=== PATIENT | female | born 1965 | race Caucasian/White ===

== ENCOUNTER → 2019-06-30 08:08 | Outpatient (CLI) | payer OTHER, SELFPAY ==
[2019-07-04 20:30] LABS: Fecal Immunochemical Test NOT DETECTED (NOT DETECTED)
== END ==
PROVIDERS: Family Provider Family Medicine; PCP Family Medicine; Referring Provider Family Medicine; Visit Provider Family Medicine
DX: Z12.11 Encounter for screening for malignant neoplasm of colon (principal)
CPT/HCPCS: 82274

== ENCOUNTER → 2019-12-22 11:22 | Outpatient (CLI) | payer OTHER, SELFPAY ==
--- NOTE | 2019-12-22 11:39 | DI.MG.S_ITS ---
Patient Name: TOBY WHITLOCK date: 1965 Sex: F Attending Physician: Onur Indications: Date: 12/22/2019 11:34 At the request of: DARCI GUERRA Procedure: MM screening mammo BI BILATERAL DIGITAL SCREENING MAMMOGRAM 3D/2D WITH CAD: 12/22/2019 CLINICAL: Routine screening. Family history of breast cancer. Comparison is made to exams dated: 03/20/2017 mammogram and 04/15/2013 mammogram - [facility]. There are scattered fibroglandular elements in both breasts. Current study was also evaluated with a Computer Aided Detection (CAD) system. No significant masses, calcifications, or other findings are seen in either breast. There has been no significant interval change. IMPRESSION: NEGATIVE There is no mammographic evidence of malignancy. A 1 year screening mammogram is recommended. This exam was interpreted at Station ID: [id number]. NOTE: For mammograms, a report in lay terms will be sent to the patient. Approximately 15% of breast malignancies will not be visualized mammographically. In the management of a palpable breast mass, a negative mammogram must not discourage biopsy of a clinically suspicious lesion. Electronically Signed By: Porfirio ring/long:12/22/2019 15:07:25 letter sent: Normal Exam ACR BI-RADS Category 1: Negative [id number]
== END ==
PROVIDERS: Family Provider Family Medicine; PCP Family Medicine; Referring Provider Family Medicine; Visit Provider Family Medicine
DX: Z12.31 Encounter for screening mammogram for malignant neoplasm of breast (principal); Z80.3 Family history of malignant neoplasm of breast
CPT/HCPCS: 77063; 77067

== ENCOUNTER → 2019-12-29 08:11 | Outpatient (CLI) | payer OTHER, SELFPAY ==
[2019-12-29 08:49] LABS: Add Manual Diff / Slide Review NO; Basophils Absolute Auto 0 /uL (0-100); Basophils Percent Auto 0.6 % (0-2); Eosinophils Absolute Auto 200 /uL (0-450); Hematocrit 42.3 % (36-46); Hemoglobin 14.6 g/dL (12.0-16.0); Lymphocytes Absolute Auto 2400 /uL (1100-4500); Lymphocytes Percent Auto 41.5 % (25-40); Mean Corpuscular HGB Conc 34.5 % (30-36); Mean Corpuscular Hemoglobin 30.2 PG (26-34); Mean Corpuscular Volume 87.6 fL (80-100); Monocytes Absolute Auto 300 /uL (0-900); Monocytes Percent Auto 5.2 % (3-14); Neutrophils Absolute Auto 2800 /uL (1500-7000); Neutrophils Percent Auto 49.7 % (50-75); Platelet Count 278 X10^3/uL (150-400); Red Blood Cell Count 4.83 X10^6/uL (4.0-5.2); Red Cell Distribution Width 12.8 % (11.6-14.8); White Blood Cell Count 5.7 X10^3/uL (4.5-11.0)
[2019-12-29 09:05] LABS: Alanine Aminotransferase 19 IU/L (<35); Albumin 4.4 g/dL (3.5-5.0); Albumin Globulin Ratio 1.8 (1.0-2.8); Alkaline Phosphatase 55 U/L (38-126); Aspartate Aminotransferase 22 IU/L (14-36); BUN Creatinine Ratio 17.9 (6-22); Bilirubin Total 1.1 mg/dL (0.2-1.3); Blood Urea Nitrogen 14 mg/dL (7-17); Calcium 9.3 mg/dL (8.4-10.2); Carbon Dioxide 27 mmol/L (22-32); Chloride 107 mmol/L (98-107); Cholesterol 177 mg/dL (140-199); Estimated Glomerular Filt Rate > 60.0 mL/min (>60); Globulin 2.5 g/dL (1.7-4.1); Glucose 111 mg/dL (70-100); HDL Cholesterol 63 mg/dL (40-60); HEMOLYSIS < 15 (0-50); LDL Cholesterol Calculated 95 mg/dL (<100); Potassium 4.3 mmol/L (3.4-5.1); Sodium 140 mmol/L (137-145); Total Protein 6.9 g/dL (6.3-8.2); Triglycerides 97 mg/dL (35-150)
[2019-12-29 09:21] LABS: Free T3, Triiodothyronine Free 3.42 pg/mL (2.77-5.27); Free T4, Direct Thyroxine 0.93 ng/dL (0.78-2.19)
[2019-12-29 09:35] LABS: Thyroid Stimulating Hormone 3.29 uIU/mL (0.47-4.68)
[2019-12-29 11:59] LABS: Vitamin D 25 Hydroxy (D3) 26.3 ng/mL (30.0-100.0)
== END ==
PROVIDERS: Family Provider Family Medicine; PCP Family Medicine; Referring Provider Family Medicine; Visit Provider Family Medicine
DX: Z00.00 Encounter for general adult medical examination without abnormal findings (principal); E55.9 Vitamin D deficiency, unspecified
CPT/HCPCS: 36415; 80053; 80061; 82306; 84439; 84443; 84481; 85025

== ENCOUNTER → 2020-07-04 13:40 | Outpatient (CLI) | payer OTHER, SELFPAY ==
[2020-07-04] MEDS: COVID-19 VACC, Ad26(JANSSEN)/PF 0.5 ML IM (13:45)
== END ==
PROVIDERS: Family Provider Family Medicine; PCP Family Medicine; Visit Provider Internal Medicine
DX: Z23 Encounter for immunization (principal)
CPT/HCPCS: 0031A; 91303

== ENCOUNTER → 2020-08-08 16:12 | Outpatient (CLI) | payer OTHER, SELFPAY ==
[2020-08-09 13:14] LABS: Fecal Immunochemical Test Negative (Negative)
== END ==
PROVIDERS: Family Provider Family Medicine; PCP Family Medicine; Referring Provider Family Medicine; Visit Provider Family Medicine
DX: Z12.11 Encounter for screening for malignant neoplasm of colon (principal)
CPT/HCPCS: 82274

== ENCOUNTER 2020-09-17 09:52 | Emergency (ER) | payer OTHER, SELFPAY ==
[2020-09-17 09:55] VITALS: BP 170/91; PULSE 106; RESP 22; O2SAT 99; BMI 32.8
[2020-09-17 09:56] VITALS: PULSE 113; O2SAT 96
[2020-09-17 09:58] VITALS: BP 170/91; PULSE 112; O2SAT 97
[2020-09-17 10:00] VITALS: PULSE 105; RESP 28; O2SAT 98
--- NOTE | 2020-09-17 10:01 | ED.GENADULT ---
HPI - General Adult General Chief complaint: Dizziness Stated complaint: dizziness, hypertension, started Thursday, vomiting Time Seen by Provider: 09/17/20 09:53 Source: patient Mode of arrival: Wheelchair Limitations: no limitations History of Present Illness HPI narrative: Patient is a 55-year-old female who 3 days ago woke up to urinate early in the morning and had which she describes as a room spinning sensation. She states that she vomited several times over the next several hours. The symptoms did seem to improve however she continues to have some unsteadiness on her feet. She states that the day after the onset of the symptoms she felt drained and tired but was somewhat better. Yesterday she was able to clean her house. This morning she again was feeling very drained and tired. Was having some lightheadedness. Symptoms became more prominent when she bent over to put on her shoes. 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 She went to the walk-in clinic on the took her blood pressure and was elevated there is well so she was sent to the emergency department for further evaluation. Related Data Home Medications Medication Instructions Recorded Confirmed fluticasone propionate 50 2 spray NASAL DAILY PRN 10/18/19 09/17/20 mcg/actuation nasal spray,suspension Previous Rx's Medication Instructions Recorded meclizine 25 mg PO TID PRN #14 tab 09/17/20 ondansetron 4 mg PO Q6H PRN #14 tab 09/17/20 Allergies Allergy/AdvReac Type Severity Reaction Status Date / Time PENICILLIN Allergy Mild VOMITING Uncoded 08/15/20 14:34 Review of Systems Constitutional Constitutional: Reports fatigue, Denies headache(s) and Reports lethargy Eyes Eyes: Reports blurry vision ENT Ears, Nose, Mouth, and Throat: Reports vertigo, Reports dizziness, Denies headache(s), Reports disequilibrium, Denies sinus pain, Denies sinus pressure and Denies sore throat Cardiovascular Cardiovascular: Denies chest pain, Denies rapid heart rate and Denies dyspnea Respiratory Respiratory: Denies cough and Denies dyspnea Gastrointestinal Gastrointestinal: Denies abdominal pain, Denies change in bowel habits, Reports nausea and Reports vomiting Genitourinary Genitourinary: Reports system reviewed and no additional complaints, except as documented Musculoskeletal Musculoskeletal: Reports system reviewed and no additional complaints, except as documented Integumentary/Breasts Skin/Breast: Reports system reviewed and no additional complaints, except as documented Neurologic Neurologic: Denies confusion, Reports vertigo, Reports dizziness, Denies headache(s) and Reports disequilibrium Psychiatric Psychiatric: Reports system reviewed and no additional complaints, except as documented and Denies confusion Endocrine Endocrine: Reports fatigue Hematologic/Lymphatic On Anticoagulants: No Allergic/Immunologic Allergic/Immunologic: Reports system reviewed and no additional complaints, except as documented Patient History Medical History Encounter for routine gynecological examination Plantar fasciitis Screen for colon cancer Seasonal allergies Sinusitis Somatic dysfunction of lower extremity Varicose veins of both lower extremities Vitamin D deficiency Social History Smoking Status: Never smoker Smoking Status: Never smoker Exam Initial Vital Signs Initial Vital Signs: Vital Signs Pulse Rate 106 H 09/17/20 09:55 Respiratory Rate 22 09/17/20 09:55 Blood Pressure 170/91 H 09/17/20 09:55 Pulse Oximetry 99 09/17/20 09:55 Const General: cooperative and comfortable Limitations: mental status not altered [facility] Head: normal to inspection and normocephalic Ears: hearing grossly normal bilaterally Nose: external nose normal Face and sinus: normal facial exam Mouth: oral mucosae normal Eyes General: appearance normal, both eyes and all related structures Eyelids: eyelids normal Pupils: PERRL Resp Effort & Inspection: normal respiratory effort Auscultation: clear to auscultation bilaterally Cardio Rate: regular rate Rhythm: regular rhythm GI Inspection: normal to inspection Skin Lesions: no lesions Rashes: no rashes Neuro General: patient alert, patient awake and patient oriented x3 Cranial Nerves: CN's II-XI intact bilaterally Cognition: normal cognition Speech: speech normal Other: We were able to reproduce the symptoms by having her bend over and put her head between her legs. Extrem General: normal to inspection and capillary refill normal Psych Appearance: grossly normal and well kempt Course Orders Ordered: ED Orders 09/17/20 10:02 EKG-12 Lead Stat 09/17/20 10:06 Basic Metabolic Panel Stat Complete Blood Count MAN DIFF Stat Discontinued Medications Meclizine HCl (Meclizine Hcl 12.5 Mg Tablet) 25 mg PO NOW ONE Stop: 09/17/20 10:16 Last Admin: 05/24/21 10:24 Dose: 25 mg Documented by: ISHMAEL Vital Signs Vital signs: Vital Signs - 8 hr 09/17/20 09:55 Pulse Rate 106 H Respiratory Rate 22 Blood Pressure 170/91 H Pulse Oximetry 99 Medical Decision Making Lab Data Lab results reviewed: Yes I reviewed the patient's lab results. Result diagrams: 09/17/20 10:06 09/17/20 10:06 Labs: Lab Results 09/17/20 09/17/20 Range/Units 10:06 10:06 WBC 6.4 (4.5-11.0) X10^3/uL RBC 4.83 (4.0-5.2) X10^6/uL Hgb 14.8 (12.0-16.0) g/dL Hct 42.6 (36-46) % MCV 88.3 (80-100) fL MCH 30.6 (26-34) PG MCHC 34.7 (30-36) % RDW 12.9 (11.6-14.8) % Plt Count 307 (150-400) X10^3/uL Total Counted 100 Seg Neutrophils % 59.0 (38-70) % Lymphocytes % (Manual) 33.0 (25-45) % Atypical Lymphs % 4.0 H ( - 0) % Monocytes % (Manual) 3.0 (2-11) % Eosinophils % (Manual) 1.0 L (2-4) % Neutrophils # (Manual) 3776 (6505-2702) /uL RBC Morphology Normal morphology Sodium 140 (137-145) mmol/L Potassium 3.7 (3.4-5.1) mmol/L Chloride 103 (98-107) mmol/L Carbon Dioxide 28 (22-32) mmol/L BUN 12 (7-17) mg/dL Creatinine 0.61 (0.52-1.04) mg/dL Estimated GFR > 60.0 (>60) mL/min BUN/Creatinine Ratio 19.7 (6-22) Glucose 156 H (70-100) mg/dL Calcium 9.8 (8.4-10.2) mg/dL Urine Dip Bedside Urine Glucose Negative Bedside Urine Bilirubin - Negative Bedside Urine Ketone - Negative Urine Specific [place] 1.010 Bedside Urine Occult Blood - Negative Bedside Urine pH 6.5 Bedside Urine Protein - Negative Bedside Urine Leukocytes - Negative Esterase Point of care testing: Urine Dip Bedside Urine Glucose Negative Bedside Urine Bilirubin - Negative Bedside Urine Ketone - Negative Urine Specific [place] 1.010 Bedside Urine Occult Blood - Negative Bedside Urine pH 6.5 Bedside Urine Protein - Negative Bedside Urine Leukocytes - Negative Esterase ECG Data Attestation: I personally reviewed and interpreted this ECG as follows: Prior ECG tracings: not available for review Interpretation: Sinus tachycardia Ventricular rate 107 Normal axis Normal QRS Normal QTC No ST T wave changes MDM Narrative Medical decision making narrative: Her symptoms are reproducible with both movement of her head to the left and right and also bending over. Otherwise her neurologic exam is normal. Was able to ambulate to the bathroom and she does report some improvement of symptoms after meclizine. She is afebrile. No trauma. I do suspect that this is a peripheral vertigo. I feel that we can hold on radiologic studies for now. Patient was given return precautions and follow-up instructions. She expressed understanding agreement. Discharge Plan Departure Patient Disposition: Home Clinical Impression: Vertigo Instructions: DI for Vertigo Activity Restrictions/Additional Instructions: I do recommend that you continue with taking Claritin on a daily basis. A prescription for nausea medication and also meclizine which you can use as needed was sent to [facility]. Contact your primary provider for follow-up. Return to the emergency department for any new or worsening symptoms Prescriptions: New meclizine 25 mg tablet 25 mg PO TID PRN (Reason: dizziness) Qty: 14 RF: 0 ondansetron 4 mg tablet,disintegrating 4 mg PO Q6H PRN (Reason: nausea and vomiting) Qty: 14 RF: 0 No Action fluticasone propionate [Flonase Allergy Relief] 50 mcg/actuation spray,suspension 2 spray NASAL DAILY PRN (Reason: seasonal allergies) RF: 0 Referrals: Maxim Mohr DO [Primary Care Provider] -
[2020-09-17 10:20] LABS: Hematocrit 42.6 % (36-46); Hemoglobin 14.8 g/dL (12.0-16.0); Mean Corpuscular HGB Conc 34.7 % (30-36); Mean Corpuscular Hemoglobin 30.6 PG (26-34); Mean Corpuscular Volume 88.3 fL (80-100); Platelet Count 307 X10^3/uL (150-400); Red Blood Cell Count 4.83 X10^6/uL (4.0-5.2); Red Cell Distribution Width 12.9 % (11.6-14.8); White Blood Cell Count 6.4 X10^3/uL (4.5-11.0)
[2020-09-17] MEDS: MECLIZINE HCL 12.5 MG TABLET 25 MG PO (10:24)
[2020-09-17 10:27] LABS: BUN Creatinine Ratio 19.7 (6-22); Blood Urea Nitrogen 12 mg/dL (7-17); Calcium 9.8 mg/dL (8.4-10.2); Carbon Dioxide 28 mmol/L (22-32); Chloride 103 mmol/L (98-107); Estimated Glomerular Filt Rate > 60.0 mL/min (>60); Glucose 156 mg/dL (70-100); HEMOLYSIS 17 (0-50); Potassium 3.7 mmol/L (3.4-5.1); Sodium 140 mmol/L (137-145)
[2020-09-17 10:30] VITALS: PULSE 97; RESP 11
[2020-09-17 10:32] LABS: Neutrophils Absolute Manual 3776 /uL (3000-5900); RBC Morphology Normal Morphology; Total Cells Counted 100
== END 2020-09-17 11:35 | disposition home or self-care (01) ==
PROVIDERS: Emergency Provider Emergency Medicine; Family Provider Family Medicine; PCP Family Medicine
DX: R42 Dizziness and giddiness (principal); R11.10 Vomiting, unspecified
CPT/HCPCS: 36415; 80048; 81003; 85025; 93005; 99284

== ENCOUNTER 2020-10-02 12:41 | Emergency (ER) | payer OTHER, SELFPAY ==
[2020-10-02 12:46] VITALS: BP 191/96; PULSE 96; O2SAT 98
[2020-10-02 12:48] VITALS: BP 191/96; PULSE 96; RESP 16; TEMP 36.7; O2SAT 97; BMI 29.7
[2020-10-02 13:00] VITALS: PULSE 87; O2SAT 98
--- NOTE | 2020-10-02 13:16 | ED_ITS ---
HPI - General Adult General Chief complaint: Dizziness Stated complaint: vertigo, high BP since 11:40am Time Seen by Provider: 10/02/20 13:08 Source: patient Mode of arrival: Ambulatory Limitations: no limitations History of Present Illness HPI narrative: Patient is a 55-year-old female who was brought in for evaluation of lightheadedness, dizziness and also high blood pressure. I evaluated her here in the emergency department several weeks ago and discharged her with meclizine with the diagnosis of vertigo that I had a strong suspicion was peripheral vertigo. She has followed up with her primary doctor since then. She does have an appointment for physical therapy but has not seen them yet. 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 Was changing positions. Was squatting and standing up and turning while at work when she had a sudden onset of the symptoms that were very similar to her prior presentation. 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 No head ache. She did take a meclizine prior to arrival with minimal improvement. Related Data Home Medications Medication Instructions Recorded Confirmed fluticasone propionate 50 2 spray NASAL DAILY PRN 10/18/19 09/25/20 mcg/actuation nasal spray,suspension Previous Rx's Medication Instructions Recorded meclizine 25 mg PO TID PRN #14 tab 09/17/20 ondansetron 4 mg PO Q6H PRN #14 tab 09/17/20 Allergies Allergy/AdvReac Type Severity Reaction Status Date / Time PENICILLIN Allergy Mild VOMITING Uncoded 08/15/20 14:34 Review of Systems Constitutional Constitutional: Denies fever(s) and Denies headache(s) Eyes Eyes: Reports blurry vision ENT Ears, Nose, Mouth, and Throat: Reports vertigo, Reports dizziness, Denies headache(s) and Denies sore throat Cardiovascular Cardiovascular: Denies chest pain, Denies rapid heart rate and Denies dyspnea Respiratory Respiratory: Denies dyspnea Gastrointestinal Gastrointestinal: Reports nausea Integumentary/Breasts Skin/Breast: Reports system reviewed and no additional complaints, except as documented Neurologic Neurologic: Denies confusion, Reports vertigo, Reports dizziness and Denies headache(s) Psychiatric Psychiatric: Denies confusion Hematologic/Lymphatic On Anticoagulants: No Allergic/Immunologic Allergic/Immunologic: Reports system reviewed and no additional complaints, except as documented Patient History Medical History Encounter for routine gynecological examination Plantar fasciitis Screen for colon cancer Seasonal allergies Sinusitis Somatic dysfunction of lower extremity Varicose veins of both lower extremities Vitamin D deficiency Social History Smoking Status: Never smoker Smoking Status: Never smoker alcohol intake frequency: 0-2 drinks per day Substance Use Type: does not use Exam Initial Vital Signs Initial Vital Signs: Vital Signs Temperature 98.1 F 10/02/20 12:48 Pulse Rate 96 H 10/02/20 12:48 Respiratory Rate 16 10/02/20 12:48 Blood Pressure 191/96 H 10/02/20 12:48 Pulse Oximetry 97 10/02/20 12:48 Const General: cooperative and comfortable Limitations: mental status not altered HENMT Head: normal to inspection and normocephalic Eyes General: appearance normal, both eyes and all related structures Resp Effort & Inspection: normal respiratory effort Auscultation: clear to auscultation bilaterally Cardio Rate: regular rate Rhythm: regular rhythm Skin Lesions: no lesions Rashes: no rashes Neuro General: patient alert, patient awake and patient oriented x3 Cranial Nerves: CN's II-XI intact bilaterally Cognition: normal cognition Speech: speech normal Sensory Exam: no sensory deficits noted Other: Was able to reproduce the symptoms by sitting her up and turning her head to either side Extrem General: normal to inspection Psych Appearance: grossly normal and well kempt Course Orders Ordered: Discontinued Medications Diazepam (Diazepam 2 Mg Tablet) 2 mg PO NOW ONE Stop: 10/02/20 13:27 Last Admin: 10/02/20 13:37 Dose: 2 mg Documented by: SHANNON Vital Signs Vital signs: Vital Signs - 8 hr 10/02/20 12:48 Temperature 98.1 F Pulse Rate 96 H Respiratory Rate 16 Blood Pressure 191/96 H Pulse Oximetry 97 Medical Decision Making ECG Data Attestation: I personally reviewed and interpreted this ECG as follows: Prior ECG tracings: not available for review Interpretation: Sinus rhythm Ventricular rate 92 Normal axis Normal QRS Normal QTC No ST T wave changes MDM Narrative Medical decision making narrative: Patient reports a great improvement her symptoms after the Valium. I again have a very high suspicion that her symptoms are peripheral vertigo. Feel that we can hold on further workup. She has meclizine at home. She has a referral to see physical therapy. Patient was given return precautions and follow-up instructions. She expressed understanding and agreement. Discharge Plan Departure Patient Disposition: Home Clinical Impression: Dizziness Instructions: DI for Vertigo Activity Restrictions/Additional Instructions: I recommend that you continue all of your medications as directed use the meclizine at home as needed. Keep your appointment with physical therapy. Return to the emergency department for any new or worsening symptoms Prescriptions: No Action fluticasone propionate [Flonase Allergy Relief] 50 mcg/actuation spray,suspension 2 spray NASAL DAILY PRN (Reason: seasonal allergies) RF: 0 meclizine 25 mg tablet 25 mg PO TID PRN (Reason: dizziness) Qty: 14 RF: 0 ondansetron 4 mg tablet,disintegrating 4 mg PO Q6H PRN (Reason: nausea and vomiting) Qty: 14 RF: 0 Referrals: Maxim Mohr DO [Primary Care Provider] -
[2020-10-02 13:30] VITALS: PULSE 81; O2SAT 96
[2020-10-02] MEDS: diazePAM 2 MG TABLET PO (13:37)
[2020-10-02 14:59] VITALS: PULSE 83; O2SAT 96
[2020-10-02 15:00] VITALS: BP 131/71; PULSE 82; O2SAT 97
== END 2020-10-02 15:15 | disposition home or self-care (01) ==
PROVIDERS: Emergency Provider Emergency Medicine; Family Provider Family Medicine; PCP Family Medicine
DX: R42 Dizziness and giddiness (principal); I10 Essential (primary) hypertension
CPT/HCPCS: 93005; 99283

== ENCOUNTER 2020-10-05 10:23 | Emergency (ER) | payer OTHER, SELFPAY ==
[2020-10-05 10:30] VITALS: BP 183/101; PULSE 86; RESP 14; TEMP 37.3; O2SAT 100; BMI 29.7
--- NOTE | 2020-10-05 10:33 | ED.DIZZY ---
HPI - Dizziness General Chief Complaint: Dizziness Stated Complaint: vertigo/dizziness /high blood pressure Time Seen by Provider: 10/05/20 10:26 Source: patient Mode of arrival: Ambulatory Limitations: no limitations History of Present Illness HPI Narrative: PATIENT IS A 55-YEAR-OLD FEMALE WHO WAS DIAGNOSED WITH ?LIKE PERIPHERAL VERTIGO. INITIALLY DIAGNOSED IN THE EMERGENCY DEPARTMENT August IS GIVEN MECLIZINE STARTED PHYSICAL THERAPY. Seem to improve and then was seen and evaluated again on 10/02/2020 for the same. Again she was given meclizine she went to physical therapy again she does seem to be improving is definitely worse with movements and position. 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 She felt like she was going to pass out but did not. She has no numbness tingling weakness no chest pain or palpitations. She denies any nausea. She took meclizine around 915 this morning was does seem to help but she certainly is still having symptoms. Initially she had a blood work and EKG she has never had any imaging of her head. MD complaint: dizziness and near syncope Severity: moderate Relieving factors: remaining still Exacerbating factors: movement and position Related Data Home Medications Medication Instructions Recorded Confirmed fluticasone propionate 50 2 spray NASAL DAILY PRN 10/18/19 09/25/20 mcg/actuation nasal spray,suspension Previous Rx's Medication Instructions Recorded meclizine 25 mg PO TID PRN #14 tab 09/17/20 ondansetron 4 mg PO Q6H PRN #14 tab 09/17/20 meclizine 25 mg PO TID PRN #14 tab 10/05/20 Allergies Allergy/AdvReac Type Severity Reaction Status Date / Time No Known Drug Allergies Allergy Verified 10/05/20 10:32 Review of Systems Review of Systems Narrative: GENERAL: Denies chills, fatigue, malaise, fever, sweats, travel HEENT: Denies sinus pain, ear pain, sore throat, difficulty swallowing, neck pain RESPIRATORY: Denies dyspnea, cough, wheezing, hemoptysis, sputum. CARDIOVASCULAR: Denies chest pain, palpitations, orthopnea, edema GASTROINTESTINAL: Denies nausea, vomiting, abdominal pain, diarrhea, constipation, melena. : Denies dysuria, frequency, incontinence, hematuria, urinary retention, flank pain. MUSCULOSKELETAL: Denies weakness, joint pain, or bony pain SKIN: No rash, no erythema, no pruritus NEUROLOGIC: See HPI PSYCHIATRIC: No concerning psychosocial issues. 12 point review of systems is negative except for those stated above and HPI Patient History Medical History Encounter for routine gynecological examination Plantar fasciitis Screen for colon cancer Seasonal allergies Sinusitis Somatic dysfunction of lower extremity Varicose veins of both lower extremities Vitamin D deficiency Social History Smoking Status: Never smoker Smoking Status: Never smoker alcohol intake frequency: 0-2 drinks per day Substance Use Type: does not use Exam Initial Vital Signs Initial Vital Signs: Vital Signs Temperature 99.1 F 10/05/20 10:30 Pulse Rate 86 10/05/20 10:30 Respiratory Rate 14 10/05/20 10:30 Blood Pressure 183/101 H 10/05/20 10:30 Pulse Oximetry 100 10/05/20 10:30 GENERAL: Well-appearing, well-nourished and in no acute distress. HEENT: Head atraumatic,EOMI, pupils reactive, no nystagmus but symptoms are triggered with extraocular muscle movement face symmetric, moist mucous membranes CARDIOVASCULAR: Regular rate and rhythm without murmurs, rubs or gallops. RESPIRATORY: Breath sounds equal bilaterally, no wheezes rales or rhonchi. ABDOMEN: Soft, nontender. Normoactive bowel sounds all 4 quadrants. No guarding or rebound. EXTREMITIES: Normal range of motion, no clubbing or edema. Neurovascularly intact NEUROLOGICAL: Alert and oriented x4.Normal gait and speech. Cranial nerves II through XII grossly intact. Good sbfcbb-pk-jbot, good magt-wh-ifoz, strength equal bilaterally, no dysarthria or aphasia, sensation in tact to soft touch bilaterally, no visual changes, no facial droop SKIN: Warm, dry, no laceration, no petechiae, no rashes or lesions. Scores NIH Stroke Scale Level of Conciousness: Alert, keenly responsive Ask month/age: Answers both questions correctly. Open/close eyes, close hand: Performs both tasks correctly Best gaze horizontal: Normal Visual baker: No visual loss Facial palsy: Normal symetrical movement Left arm drift: No drift for full 10 sec Right arm drift: No drift for full 10 sec Left leg drift: No drift for full 5 sec Right leg drift: No drift for full 5 sec Limb ataxia: Absent Sensory on face/arms/legs: Normal, no sensory loss Best language: No aphasia, normal Dysarthria: Normal Extinction or inattention: No abnormality Total NIH Stroke scale score: 0 Course Orders Ordered: ED Orders 10/05/20 10:47 EKG-12 Lead Stat 10/05/20 10:55 Complete Blood Count AUTO DIFF Stat Comprehensive Metabolic Panel Stat 10/05/20 11:20 CT angio head and neck Stat Discontinued Medications Ketorolac Tromethamine (Ketorolac 30 Mg/Ml Vial) 30 mg IV NOW ONE Stop: 10/05/20 12:44 Last Admin: 10/05/20 13:05 Dose: 30 mg Documented by: DONOVAN Ondansetron HCl (Ondansetron 4 Mg/2 Ml Inj) 4 mg IV NOW ONE Stop: 10/05/20 10:48 Last Admin: 10/05/20 10:59 Dose: 4 mg Documented by: JENNI Vital Signs Vital signs: Vital Signs - 8 hr 10/05/20 11:01 10/05/20 11:02 10/05/20 13:30 Temperature 98.7 F Pulse Rate 89 70 Respiratory Rate 16 Blood Pressure 162/101 H 149/72 H Pulse Oximetry 98 95 95 MDM - Dizziness Lab Data Attestation: I reviewed the patient's lab results. Result diagrams: 10/05/20 10:55 10/05/20 10:55 Labs: Lab Results 10/05/20 10/05/20 Range/Units 10:55 10:55 WBC 6.8 (4.5-11.0) X10^3/uL RBC 4.85 (4.0-5.2) X10^6/uL Hgb 14.8 (12.0-16.0) g/dL Hct 42.7 (36-46) % MCV 87.9 (80-100) fL MCH 30.4 (26-34) PG MCHC 34.6 (30-36) % RDW 13.0 (11.6-14.8) % Plt Count 305 (150-400) X10^3/uL Neut % (Auto) 50.0 (50-75) % Lymph % (Auto) 41.0 H (25-40) % Harrison % (Auto) 5.6 (3-14) % Eos % (Auto) 2.6 (2-4) % Baso % (Auto) 0.8 (0-2) % Neut # (Auto) 3400 (6371-6520) /uL Lymph # (Auto) 2800 (2653-9849) /uL Harrison # (Auto) 400 (0-900) /uL Eos # (Auto) 200 (0-450) /uL Baso # (Auto) 100 (0-100) /uL Sodium 139 (137-145) mmol/L Potassium 4.1 (3.4-5.1) mmol/L Chloride 105 (98-107) mmol/L Carbon Dioxide 28 (22-32) mmol/L BUN 12 (7-17) mg/dL Creatinine 0.65 (0.52-1.04) mg/dL Estimated GFR > 60.0 (>60) mL/min BUN/Creatinine Ratio 18.5 (6-22) Glucose 110 H (70-100) mg/dL Calcium 9.7 (8.4-10.2) mg/dL Total Bilirubin 1.2 (0.2-1.3) mg/dL AST 34 (14-36) IU/L ALT 41 H (<35) IU/L Alkaline Phosphatase 60 (38-126) U/L Total Protein 7.6 (6.3-8.2) g/dL Albumin 4.5 (3.5-5.0) g/dL Globulin 3.1 (1.7-4.1) g/dL Albumin/Globulin Ratio 1.5 (1.0-2.8) Imaging Data CTA - brain/neck: Radiologist's Impression: PROCEDURE: CT ANGIO HEAD AND NECK INDICATIONS: Persistent dizziness TECHNIQUE: Pre-contrast 4.5 mm thick sections acquired from the foramen magnum to the vertex. After the administration of intravenous contrast, 1 mm thick sections acquired from the aortic arch through the [place] of Matt. Post-contrast 4.5 mm thick sections then re-acquired from the foramen magnum to the vertex. 3-dimensional dnfajfa-klzwyzqpu-vrlrdhxbfp (MIP) and/or volume rendering reformats were acquired of the central intracranial vasculature and neck separately. COMPARISON: None. FINDINGS: Image quality: Excellent. BRAIN: CSF spaces: Ventricles are normal in size and shape. Basal cisterns are patent. No extra-axial fluid collections. Cavum septum pellucidum. Brain: No midline shift. No intracranial bleeds or masses. Khoury-white matter interface appears intact. Skull and face: Calvarium and facial bones appear intact, without suspicious lesions. Orbits appear normal. Sinuses: Sinuses and mastoids are clear. HEAD CT ANGIOGRAPHY: Anterior circulation: Intracranial internal carotid arteries are normal in size and flow. The flow within the paired anterior cerebral arteries is normal and symmetric. The flow within the middle cerebral arteries is normal and symmetric. The anterior communicating artery is seen. No aneurysms are seen. Posterior circulation: Visualized portions of the vertebral arteries demonstrate normal caliber, and join to form a normal appearing basilar artery. There is origin of the right posterior cerebral artery. Flow within the posterior cerebral arteries is normal and symmetric. No aneurysms are seen. NECK CT ANGIOGRAPHY: Carotid system: The great vessels demonstrate a conventional anatomy as they arise from the aortic arch. The origins of the common carotid arteries appear patent. The common carotid arteries demonstrate normal caliber and courses. The bifurcation regions are both widely patent. The internal carotid arteries demonstrate normal calibers and courses. Posterior circulation: The origins of the vertebral arteries both appear widely patent. The more superior extracranial portions of both vertebral arteries also demonstrate normal courses and calibers. They join to form a normal appearing basilar artery. Soft tissues: Visualized neck soft tissues demonstrate no suspicious abnormalities. Bones: No suspicious bony lesions. Visualized cervical spine appears normally aligned. Moderate to severe degenerative and facet disease at C4-C5, C5-C6 and C6-C7. IMPRESSION: 1. No acute intracranial abnormalities. 2. No hemodynamic significant stenosis in anterior or posterior circulations. 3. No hemodynamic significant stenosis in cervical carotid arteries or vertebral arteries bilaterally. 4. Vzizrvxi-zs-dkfgiq degenerative disc and facet disease in cervical spine. Any quantitative measurements of stenosis were performed using NASCET criteria. ECG Data Attestation: I personally reviewed and interpreted this ECG as follows: Prior ECG tracings: available for review Interpretation: Normal sinus rhythm rate 80 p.r. interval 116 QRS [address] changes no T-wave inversions similar to previous EKG she MDM Narrative Medical decision making narrative: Patient previously diagnosed with peripheral benign paroxysmal positional vertigo. She has not yet had any imaging of her head as seen a few days ago. At this time blood work and CT angiogram be not show any abnormality. Symptoms are most consistent with benign paroxysmal positional vertigo. She already is set up with physical therapy. She took her meclizine prior to arrival which now seems to be working but she does have a headache. Headache is better after Toradol. Discharge Plan Departure Patient Disposition: Home Clinical Impression: Benign paroxysmal positional vertigo Qualifiers: Laterality: unspecified laterality Qualified Code(s): H81.10 - Benign paroxysmal vertigo, unspecified ear Instructions: DI for Vertigo Activity Restrictions/Additional Instructions: *You have been diagnosed with benign paroxysmal positional vertigo *What to do: Your symptoms are likely related to vertigo, this unfortunately real spontaneously resolve on its own. He may need a head ear nose and throat specialty evaluation if symptoms continue If this should happen at work I recommend taking her meclizine and giving it a couple of hours to work. If your symptoms are significantly worse or changing then you need to return to the emergency department *Continue to take medications as directed Meclizine 25-50 mg every 8 hours if needed for dizziness--> SENT TO [facility] *Follow up with your primary care provider in 2-3 days *Return to ER if you should have increasing dizziness, speech difficulty, facial droop, weakness or any new, worsening or concerning symptoms Prescriptions: New meclizine 25 mg tablet 25 mg PO TID PRN (Reason: dizziness) Qty: 14 RF: 0 No Action fluticasone propionate [Flonase Allergy Relief] 50 mcg/actuation spray,suspension 2 spray NASAL DAILY PRN (Reason: seasonal allergies) RF: 0 meclizine 25 mg tablet 25 mg PO TID PRN (Reason: dizziness) Qty: 14 RF: 0 ondansetron 4 mg tablet,disintegrating 4 mg PO Q6H PRN (Reason: nausea and vomiting) Qty: 14 RF: 0 Referrals: Maxim Mohr DO [Primary Care Provider] -
[2020-10-05] MEDS: ONDANSETRON 4 MG/2 ML INJ IV (10:59)
[2020-10-05 11:01] VITALS: O2SAT 98
[2020-10-05 11:02] VITALS: BP 162/101; PULSE 89; O2SAT 95
[2020-10-05 11:07] LABS: Add Manual Diff / Slide Review NO; Basophils Absolute Auto 100 /uL (0-100); Basophils Percent Auto 0.8 % (0-2); Eosinophils Absolute Auto 200 /uL (0-450); Eosinophils Percent Auto 2.6 % (2-4); Hematocrit 42.7 % (36-46); Hemoglobin 14.8 g/dL (12.0-16.0); Lymphocytes Absolute Auto 2800 /uL (1100-4500); Mean Corpuscular HGB Conc 34.6 % (30-36); Mean Corpuscular Hemoglobin 30.4 PG (26-34); Mean Corpuscular Volume 87.9 fL (80-100); Monocytes Absolute Auto 400 /uL (0-900); Monocytes Percent Auto 5.6 % (3-14); Neutrophils Absolute Auto 3400 /uL (1500-7000); Platelet Count 305 X10^3/uL (150-400); Red Blood Cell Count 4.85 X10^6/uL (4.0-5.2); White Blood Cell Count 6.8 X10^3/uL (4.5-11.0)
[2020-10-05 11:16] LABS: Alanine Aminotransferase 41 IU/L (<35); Albumin 4.5 g/dL (3.5-5.0); Albumin Globulin Ratio 1.5 (1.0-2.8); Alkaline Phosphatase 60 U/L (38-126); Aspartate Aminotransferase 34 IU/L (14-36); BUN Creatinine Ratio 18.5 (6-22); Bilirubin Total 1.2 mg/dL (0.2-1.3); Blood Urea Nitrogen 12 mg/dL (7-17); Calcium 9.7 mg/dL (8.4-10.2); Carbon Dioxide 28 mmol/L (22-32); Chloride 105 mmol/L (98-107); Estimated Glomerular Filt Rate > 60.0 mL/min (>60); Globulin 3.1 g/dL (1.7-4.1); Glucose 110 mg/dL (70-100); HEMOLYSIS < 15 (0-50); Potassium 4.1 mmol/L (3.4-5.1); Sodium 139 mmol/L (137-145); Total Protein 7.6 g/dL (6.3-8.2)
--- NOTE | 2020-10-05 11:20 | DI.CT.S_ITS ---
PROCEDURE: CT ANGIO HEAD AND NECK INDICATIONS: Persistent dizziness TECHNIQUE: Pre-contrast 4.5 mm thick sections acquired from the foramen magnum to the vertex. After the administration of intravenous contrast, 1 mm thick sections acquired from the aortic arch through the [place] of Matt. Post-contrast 4.5 mm thick sections then re-acquired from the foramen magnum to the vertex. 3-dimensional nxdobtf-nymqxjtmh-tozlsgurhk (MIP) and/or volume rendering reformats were acquired of the central intracranial vasculature and neck separately. COMPARISON: None. FINDINGS: Image quality: Excellent. BRAIN: CSF spaces: Ventricles are normal in size and shape. Basal cisterns are patent. No extra-axial fluid collections. Cavum septum pellucidum. Brain: No midline shift. No intracranial bleeds or masses. Khoury-white matter interface appears intact. Skull and face: Calvarium and facial bones appear intact, without suspicious lesions. Orbits appear normal. Sinuses: Sinuses and mastoids are clear. HEAD CT ANGIOGRAPHY: Anterior circulation: Intracranial internal carotid arteries are normal in size and flow. The flow within the paired anterior cerebral arteries is normal and symmetric. The flow within the middle cerebral arteries is normal and symmetric. The anterior communicating artery is seen. No aneurysms are seen. Posterior circulation: Visualized portions of the vertebral arteries demonstrate normal caliber, and join to form a normal appearing basilar artery. There is origin of the right posterior cerebral artery. Flow within the posterior cerebral arteries is normal and symmetric. No aneurysms are seen. NECK CT ANGIOGRAPHY: Carotid system: The great vessels demonstrate a conventional anatomy as they arise from the aortic arch. The origins of the common carotid arteries appear patent. The common carotid arteries demonstrate normal caliber and courses. The bifurcation regions are both widely patent. The internal carotid arteries demonstrate normal calibers and courses. Posterior circulation: The origins of the vertebral arteries both appear widely patent. The more superior extracranial portions of both vertebral arteries also demonstrate normal courses and calibers. They join to form a normal appearing basilar artery. Soft tissues: Visualized neck soft tissues demonstrate no suspicious abnormalities. Bones: No suspicious bony lesions. Visualized cervical spine appears normally aligned. Moderate to severe degenerative and facet disease at C4-C5, C5-C6 and C6-C7. IMPRESSION: 1. No acute intracranial abnormalities. 2. No hemodynamic significant stenosis in anterior or posterior circulations. 3. No hemodynamic significant stenosis in cervical carotid arteries or vertebral arteries bilaterally. 4. Qcywtklu-ht-tjlzee degenerative disc and facet disease in cervical spine. Any quantitative measurements of stenosis were performed using NASCET criteria. Dictated by: Chanelle Watt M.D. on 10/05/2020 at 11:51 Approved by: Chanelle Watt M.D. on 10/05/2020 at 12:04
[2020-10-05] MEDS: KETOROLAC 30 MG/ML VIAL IV (13:05)
[2020-10-05 13:30] VITALS: BP 149/72; PULSE 70; RESP 16; TEMP 37.1; O2SAT 95
== END 2020-10-05 13:31 | disposition home or self-care (01) ==
PROVIDERS: Emergency Provider Emergency Medicine; Family Provider Family Medicine; PCP Family Medicine
DX: H81.10 Benign paroxysmal vertigo, unspecified ear (principal)
CPT/HCPCS: 36415; 70496; 70498; 80053; 85025; 93005; 96374; 96375; 99284; J1885; J2405; Q9967

== ENCOUNTER 2020-11-06 13:45 | Outpatient (RCR) | payer OTHER, SELFPAY ==
--- NOTE | 2020-10-03 17:28 | PT.OIE ---
Current Diagnoses Vestibular neuronitis, left ear (10/03/20) Dizziness and giddiness (10/03/20) Past Medical History (Last Reviewed 10/02/20 @ 15:02 by Mansoor Khalil DO) Encounter for routine gynecological examination Plantar fasciitis Screen for colon cancer Seasonal allergies Sinusitis Somatic dysfunction of lower extremity Varicose veins of both lower extremities Vitamin D deficiency Visit Care Team Role Provider Type Maxim Mhor DO Family Provider Physician Primary Care Provider Specialty: Family Practice Address: [address] [place] [address], [id number] Email: JESSE Vann Attending Provider Advanced Work Study Student Referring Provider Specialty: Medical Address: [address] [place] [address], [id number] Email: [email or web address] Therapy Initial Evaluation PT-OP-A Visit Information Start: 10/03/20 16:59 Freq: Status: Active Protocol: Document 10/03/20 14:30 DCW (Rec: 10/03/20 17:26 DCW [id number]) Out-Patient Physical Therapy Visit Information Visit Information Visit Type Initial Evaluation Visit Start Time 14:30 Visit Stop Time 15:15 Total Visit Minutes 45 Visit Number 1 Number of CORE FEEDER Visits 0 Evaluation Information Evaluation Date 10/03/20 PT-OP-B Current Condition Start: 10/03/20 16:59 Freq: Status: Active Protocol: Document 10/03/20 14:30 DCW (Rec: 10/03/20 17:26 DCW [id number]) Current Condition History of Current Condition Onset Date 09/14/20 Current Complaints General imbalance following an episode of continous vertigo History of Current Condition Pt is a 55 year old female complaining of a three week history of vertigo and imbalance. Pt reports she woke up on , 09/14/20, with the entire room spinning, which continued for ~2 hours, no matter what she tried. Pt reports symptoms included nausea and vomiting. Pt did end up going to urgent care, who then sent her to the ED, on 09/17/20, where she was seen , diagnosed with peripheral vertigo, and discharged with Meclizine. She notes she improved by Thursday, and spent most of her weekend not doing much moving. Upon returning to work the following Thursday, pt noted worsened symptoms, especially when up walking around or moving her head, which were now no longer spinning, and more of a feeling of imbalance, like I was tipsy or drunk. Pt denies recent hearing changes, but did note a fullness, or pressure, in her left ear. Pt denies diplopia, dysarthria, discoordination, or decreased mentation/consciousness. Pt reports symptoms are waxing/ waning in nature, seemingly cycling between better or worse about every four days. Pt denies hx of HTN, hyperlipidemia, diabetes, arrhythmia, head trauma, seizure, migraines, back/neck problems, CVA, anxiety/panic disorders, depression, or excessive smoking or drinking. PT-OP-C Subjective Start: 10/03/20 16:59 Freq: Status: Active Protocol: Document 10/03/20 14:30 DCW (Rec: 10/03/20 17:26 [facility] [id number]) OP-PT Subjective Patient Comments Patient Comments When it first started, the room was spinning. Now it feels like I'm on a boat. Patient Questionnaires Dizziness Handicap Inventory DHI Score 52% DHI Functional Impairment 40 to 59% Impaired (Score 40- 59) PT-OP-O Vestibular Start: 10/03/20 16:59 Freq: Status: Active Protocol: Document 10/03/20 14:30 DCW (Rec: 10/03/20 17:26 [facility] [id number]) Vestibular Assessment Screening Tests Vestibular Artery Screen Negative Auditory Tests [place] Test Within normal limits Rinne Test Negative Air Conduction Results Equal Visual Testing Smooth Pursuits Horizontal WNL Smooth Pursuits Vertical WNL Saccades Horizontal WNL Saccades Vertical WNL Gaze Evoked Nystagmus With Fixation Negative Gaze Evoked Nystagmus Without Fixation Negative Heave Test Positive Left Thrust Head Positive Left Head Shake Positive Positional Testing [place]-Hallpike Negative Left,Negative Right Rolling Test Negative Left,Negative Right Supine to Sit Negative Comments Vestibular Comments Positive lateral nystagmus following head shake toward right PT-OP-Q Treatments Start: 10/03/20 16:59 Freq: Status: Active Protocol: Document 10/03/20 14:30 DCW (Rec: 10/03/20 17:26 DCW [id number]) Neuro Re-Education Treatment Vestibular Rehabilitation X2 Viewing Details Head and target moving in opposite directions Comments Pt too symptomatic at this time, reintroduce later X1 Viewing Details Static target, moving head Distance From Target Arm length Speed as tolerated Position seated VOR Retraining Details Moving target and head together Distance From Target Arm length Speed as tolerated Position seated PT-OP-T Assessment and Plan Start: 10/03/20 16:59 Freq: Status: Active Protocol: Document 10/03/20 14:30 DCW (Rec: 10/03/20 17:26 DC [id number]) Physical Therapy Assessment Rehab Potential Rehabilitation Potential Good Evaluation Complexity Number of Personal Factors/Comorbidities 1-2 Number of Body Systems Impaired 1-2 Clinical Presentation at Evaluation Unstable Impairments Impairments Activity Tolerance,Balance, Functional Activities, Functional Mobility,Vestibular Goals Two Impairment Pt scores a 52% disability on the Dizziness Handicap Inventory Senior Living Goal (LTG) Pt to score <30% disability on the DHI LTG Duration 12/03/20 One Impairment Pt does not have an appropriate Home Exercise Program at this time Short Term Goal (STG) Pt to be independent and compliant with an appropriate HEP STG Duration 11/02/20 Assessment Summary Assessment Pt presents with signs and symptoms consistent with left- sided unilateral vestibular hypofunction, likely Vestibular Neuritis. Pt's subjective complaints are strongly suggestive of a sudden unilateral vestibular loss, with 1-2 hours of rotational vertigo, followed by a continuing general loss of balance/equilibrium. Positive Thrust/Heave testing to the left, as well as a lateral nystagmus to the right following a head-shake test, all suggest left-sided dysfunction. Pt does not note any recent notable hearing loss, making VN more likely that Labrynthitis. Pt admits she has largely been moving en bloc to avoid unnecessary head movements. Pt should benefit from skilled vestibular therapy focusing on habituation and/or adaptation exercises, VOR retraining, and balance training to help patient return to her usual level of function. Physical Therapy Plan Frequency and Duration Frequency of Treatment 2x/Week Duration of Treatment Two months Plan of Care Start Date 10/03/20 Plan of Care End Date 12/03/20 Therapeutic Interventions Therapeutic Interventions Balance Training,Canalithic Repositioning,Home Exercise Program,Manual Therapy, Neuromuscular Re-education, Patient/Caregiver Education, Self-Care/Home Management, Therapeutic Activities, Therapeutic Exercises, Vestibular Rehabilitation Next Visit Focus/Plan Next Note Type Treatment Note Next Visit Plan VOR, Vestibular rehabilitation , Habituation/Adaptation exercises
--- NOTE | 2020-10-03 17:29 | PT.OPPOC ---
Physical, Occupational & Speech Therapy At [facility] Current Diagnoses Vestibular neuronitis, left ear (10/03/20) Dizziness and giddiness (10/03/20) Visit Care Team Role Provider Type Maxim Mohr DO Family Provider Physician Primary Care Provider Specialty: Family Practice Address: [address] [place] [address], [id number] Email: JESSE Vann Attending Provider Advanced Fisher Line Referring Provider Specialty: Medical Address: [address] [place] [address], [id number] Email: [email or web address] Plan Of Care PT-OP-T Assessment and Plan Start: 10/03/20 16:59 Freq: Status: Active Protocol: Document 10/03/20 14:30 DCW (Rec: 10/03/20 17:26 DCW [id number]) Physical Therapy Assessment Rehab Potential Rehabilitation Potential Good Evaluation Complexity Number of Personal Factors/Comorbidities 1-2 Number of Body Systems Impaired 1-2 Clinical Presentation at Evaluation Unstable Impairments Impairments Activity Tolerance,Balance, Functional Activities, Functional Mobility,Vestibular Goals Two Impairment Pt scores a 52% disability on the Dizziness Handicap Inventory Patient Care Technician Goal (LTG) Pt to score <30% disability on the DHI LTG Duration 12/03/20 One Impairment Pt does not have an appropriate Home Exercise Program at this time Short Term Goal (STG) Pt to be independent and compliant with an appropriate HEP STG Duration 11/02/20 Assessment Summary Assessment Pt presents with signs and symptoms consistent with left- sided unilateral vestibular hypofunction, likely Vestibular Neuritis. Pt's subjective complaints are strongly suggestive of a sudden unilateral vestibular loss, with 1-2 hours of rotational vertigo, followed by a continuing general loss of balance/equilibrium. Positive Thrust/Heave testing to the left, as well as a lateral nystagmus to the right following a head-shake test, all suggest left-sided dysfunction. Pt does not note any recent notable hearing loss, making VN more likely that Labrynthitis. Pt admits she has largely been moving en bloc to avoid unnecessary head movements. Pt should benefit from skilled vestibular therapy focusing on habituation and/or adaptation exercises, VOR retraining, and balance training to help patient return to her usual level of function. Physical Therapy Plan Frequency and Duration Frequency of Treatment 2x/Week Duration of Treatment Two months Plan of Care Start Date 10/03/20 Plan of Care End Date 12/03/20 Therapeutic Interventions Therapeutic Interventions Balance Training,Canalithic Repositioning,Home Exercise Program,Manual Therapy, Neuromuscular Re-education, Patient/Caregiver Education, Self-Care/Home Management, Therapeutic Activities, Therapeutic Exercises, Vestibular Rehabilitation Next Visit Focus/Plan Next Note Type Treatment Note Next Visit Plan VOR, Vestibular rehabilitation , Habituation/Adaptation exercises Plan of Care Dates Plan of Care Start Date 10/03/20 Plan of Care End Date 12/03/20 Electronically Signed by: Isac Baxter, PT 10/03/20 [id number] Please Sign and Return: I have reviewed this Plan of Care and certify that the skilled therapy services above are required to meet the patient?s needs. Physician Signature Date Printed Name and Credentials Clinical Instructor Signature Printed Name and Credentials
--- NOTE | 2020-10-09 15:28 | PT.OTN ---
Current Diagnoses Vestibular neuronitis, left ear (10/09/20) Dizziness and giddiness (10/09/20) Physical Therapy Treatment Note PT-OP-A Visit Information Start: 10/03/20 16:59 Freq: Status: Active Protocol: Document 10/09/20 09:00 AMB (Rec: 10/09/20 09:40 AMB [id number]) Out-Patient Physical Therapy Visit Information Visit Information Visit Type Treatment Note Visit Start Time 09:00 Visit Stop Time 09:45 Total Visit Minutes 45 Visit Number 2 PT-OP-B Current Condition Start: 10/03/20 16:59 Freq: Status: Active Protocol: Document 10/03/20 14:30 DCW (Rec: 10/03/20 17:26 DCW [id number]) Current Condition History of Current Condition Onset Date 09/14/20 Current Complaints General imbalance following an episode of continous vertigo History of Current Condition Pt is a 55 year old female complaining of a three week history of vertigo and imbalance. Pt reports she woke up on , 09/14/20, with the entire room spinning, which continued for ~2 hours, no matter what she tried. Pt reports symptoms included nausea and vomiting. Pt did end up going to urgent care, who then sent her to the ED, on 09/17/20, where she was seen , diagnosed with peripheral vertigo, and discharged with Meclizine. She notes she improved by Thursday, and spent most of her weekend not doing much moving. Upon returning to work the following Thursday, pt noted worsened symptoms, especially when up walking around or moving her head, which were now no longer spinning, and more of a feeling of imbalance, like I was tipsy or drunk. Pt denies recent hearing changes, but did note a fullness, or pressure, in her left ear. Pt denies diplopia, dysarthria, discoordination, or decreased mentation/consciousness. Pt reports symptoms are waxing/ waning in nature, seemingly cycling between better or worse about every four days. Pt denies hx of HTN, hyperlipidemia, diabetes, arrhythmia, head trauma, seizure, migraines, back/neck problems, CVA, anxiety/panic disorders, depression, or excessive smoking or drinking. PT-OP-C Subjective Start: 10/03/20 16:59 Freq: Status: Active Protocol: Document 10/09/20 09:00 AMB (Rec: 10/09/20 09:40 AMB [id number]) OP-PT Subjective Patient Comments Patient Comments Pt went to the ER on the 11. A lot of movement going on seemed to trigger it. PT-OP-O Vestibular Start: 10/03/20 16:59 Freq: Status: Active Protocol: Document 10/03/20 14:30 DCW (Rec: 10/03/20 17:26 DCW [id number]) Vestibular Assessment Screening Tests Vestibular Artery Screen Negative Auditory Tests Kimble Test Within normal limits Rinne Test Negative Air Conduction Results Equal Visual Testing Smooth Pursuits Horizontal WNL Smooth Pursuits Vertical WNL Saccades Horizontal WNL Saccades Vertical WNL Gaze Evoked Nystagmus With Fixation Negative Gaze Evoked Nystagmus Without Fixation Negative Heave Test Positive Left Thrust Head Positive Left Head Shake Positive Positional Testing [place]-Hallpike Negative Left,Negative Right Rolling Test Negative Left,Negative Right Supine to Sit Negative Comments Vestibular Comments Positive lateral nystagmus following head shake toward right PT-OP-Q Treatments Start: 10/03/20 16:59 Freq: Status: Active Protocol: Document 10/09/20 09:00 AMB (Rec: 10/09/20 09:40 AMB [id number]) Neuro Re-Education Treatment Vestibular Rehabilitation X1 Viewing Details Static target, moving head Distance From Target Arm length Speed as tolerated Position seated, then standing Reps/Duration 30x5 Comments 3/10 dizziness Other Activities 3 Details Education re grounding, symptom managament 2 Details foam balance with horizontal head turns Reps/Duration 5 min 1 Details walking in hallway Reps/Duration 5 min Comments horizontal and then vertical head turns PT-OP-T Assessment and Plan Start: 10/03/20 16:59 Freq: Status: Active Protocol: Document 10/09/20 09:00 AMB (Rec: 10/09/20 09:40 AMB [id number]) Physical Therapy Assessment Assessment Summary Assessment pt with 0/10 dizziness at beginning of session, 1/10 at end. Worst 4/10 after VOR exercises. Pt anxious, so spent a lot of time talking about grounding and instructing in nature of vestibular disorders. Physical Therapy Plan Next Visit Focus/Plan Next Note Type Treatment Note Next Visit Plan VOR, Vestibular rehabilitation , Habituation/Adaptation exercises
--- NOTE | 2020-10-17 15:19 | PT.OTN ---
Current Diagnoses Vestibular neuronitis, left ear (10/17/20) Dizziness and giddiness (10/17/20) Physical Therapy Treatment Note PT-OP-A Visit Information Start: 10/03/20 16:59 Freq: Status: Active Protocol: Document 10/17/20 14:35 MB (Rec: 10/17/20 15:18 MB [id number]) Out-Patient Physical Therapy Visit Information Visit Information Visit Type Treatment Note Visit Start Time 14:35 Visit Stop Time 15:15 Total Visit Minutes 40 Visit Number 3 PT-OP-B Current Condition Start: 10/03/20 16:59 Freq: Status: Active Protocol: Document 10/03/20 14:30 DCW (Rec: 10/03/20 17:26 DCW [id number]) Current Condition History of Current Condition Onset Date 09/14/20 Current Complaints General imbalance following an episode of continous vertigo History of Current Condition Pt is a 55 year old female complaining of a three week history of vertigo and imbalance. Pt reports she woke up on , 09/14/20, with the entire room spinning, which continued for ~2 hours, no matter what she tried. Pt reports symptoms included nausea and vomiting. Pt did end up going to urgent care, who then sent her to the ED, on 09/17/20, where she was seen , diagnosed with peripheral vertigo, and discharged with Meclizine. She notes she improved by Thursday, and spent most of her weekend not doing much moving. Upon returning to work the following Thursday, pt noted worsened symptoms, especially when up walking around or moving her head, which were now no longer spinning, and more of a feeling of imbalance, like I was tipsy or drunk. Pt denies recent hearing changes, but did note a fullness, or pressure, in her left ear. Pt denies diplopia, dysarthria, discoordination, or decreased mentation/consciousness. Pt reports symptoms are waxing/ waning in nature, seemingly cycling between better or worse about every four days. Pt denies hx of HTN, hyperlipidemia, diabetes, arrhythmia, head trauma, seizure, migraines, back/neck problems, CVA, anxiety/panic disorders, depression, or excessive smoking or drinking. PT-OP-C Subjective Start: 10/03/20 16:59 Freq: Status: Active Protocol: Document 10/17/20 14:35 MB (Rec: 10/17/20 15:18 MB [id number]) OP-PT Subjective Patient Comments Patient Comments Pt states that she is doing better since her last ED appointment. The school year is over. She has felt more hyper than usual. She is working on breathing and slowing down. PT-OP-O Vestibular Start: 10/03/20 16:59 Freq: Status: Active Protocol: Document 10/03/20 14:30 DCW (Rec: 10/03/20 17:26 DCW [id number]) Vestibular Assessment Screening Tests Vestibular Artery Screen Negative Auditory Tests Kimble Test Within normal limits Rinne Test Negative Air Conduction Results Equal Visual Testing Smooth Pursuits Horizontal WNL Smooth Pursuits Vertical WNL Saccades Horizontal WNL Saccades Vertical WNL Gaze Evoked Nystagmus With Fixation Negative Gaze Evoked Nystagmus Without Fixation Negative Heave Test Positive Left Thrust Head Positive Left Head Shake Positive Positional Testing [place]-Hallpike Negative Left,Negative Right Rolling Test Negative Left,Negative Right Supine to Sit Negative Comments Vestibular Comments Positive lateral nystagmus following head shake toward right PT-OP-Q Treatments Start: 10/03/20 16:59 Freq: Status: Active Protocol: Document 10/17/20 14:35 MB (Rec: 10/17/20 15:18 MB [id number]) Therapeutic Exercises Sitting Exercises Buteyko breathing Sitting Exercise Name Ed theory in Buteyko breathing , initiated ex Comments See comments in assessment PT-OP-T Assessment and Plan Start: 10/03/20 16:59 Freq: Status: Active Protocol: Document 10/17/20 14:35 MB (Rec: 10/17/20 15:18 MB [id number]) Physical Therapy Assessment Rehab Potential Rehabilitation Potential Good Evaluation Complexity Number of Personal Factors/Comorbidities 1-2 Number of Body Systems Impaired 1-2 Clinical Presentation at Evaluation Unstable Impairments Impairments Activity Tolerance,Balance, Functional Activities, Functional Mobility,Vestibular Goals Two Impairment Pt scores a 52% disability on the Dizziness Handicap Inventory Credit Support Counselor Goal (LTG) Pt to score <30% disability on the DHI LTG Duration 12/03/20 One Impairment Pt does not have an appropriate Home Exercise Program at this time Short Term Goal (STG) Pt to be independent and compliant with an appropriate HEP STG Duration 11/02/20 Assessment Summary Assessment Pt reports left sided congestion and ear changes with the vestibular issue and ongoing sinus and allergies issues and so initiated Buteyko breathing today and pt presents with blocked left nostril. Tried reduced breathing and sinus decongestion and pt has trouble with these, opening mouth. Right blocked nostril for congested left nostril worked well and pt felt popping in left sinus area and clearing. Encouraged pt to con't trying to breathe through her nose to help with congestion and anxiety, which will likely help her vestibular symptoms. Will con' t PT with primary therapist next treatment date. Physical Therapy Plan Frequency and Duration Frequency of Treatment 2x/Week Duration of Treatment Two months Plan of Care Start Date 10/03/20 Plan of Care End Date 12/03/20 Therapeutic Interventions Therapeutic Interventions Balance Training,Canalithic Repositioning,Home Exercise Program,Manual Therapy, Neuromuscular Re-education, Patient/Caregiver Education, Self-Care/Home Management, Therapeutic Activities, Therapeutic Exercises, Vestibular Rehabilitation Next Visit Focus/Plan Next Note Type Treatment Note Next Visit Plan VOR, Vestibular rehabilitation , Habituation/Adaptation exercises
--- NOTE | 2020-10-23 11:16 | PT.OTN ---
Current Diagnoses Vestibular neuronitis, left ear (10/23/20) Dizziness and giddiness (10/23/20) Physical Therapy Treatment Note PT-OP-A Visit Information Start: 10/03/20 16:59 Freq: Status: Active Protocol: Document 10/23/20 10:30 DCW (Rec: 10/23/20 11:16 DCW [id number]) Out-Patient Physical Therapy Visit Information Visit Information Visit Type Treatment Note Visit Start Time 10:30 Visit Stop Time 11:15 Total Visit Minutes 45 Visit Number 4 Evaluation Information Evaluation Date 10/03/20 PT-OP-B Current Condition Start: 10/03/20 16:59 Freq: Status: Active Protocol: Document 10/03/20 14:30 DCW (Rec: 10/03/20 17:26 DCW [id number]) Current Condition History of Current Condition Onset Date 09/14/20 Current Complaints General imbalance following an episode of continous vertigo History of Current Condition Pt is a 55 year old female complaining of a three week history of vertigo and imbalance. Pt reports she woke up on , 09/14/20, with the entire room spinning, which continued for ~2 hours, no matter what she tried. Pt reports symptoms included nausea and vomiting. Pt did end up going to urgent care, who then sent her to the ED, on 09/17/20, where she was seen , diagnosed with peripheral vertigo, and discharged with Meclizine. She notes she improved by Thursday, and spent most of her weekend not doing much moving. Upon returning to work the following Thursday, pt noted worsened symptoms, especially when up walking around or moving her head, which were now no longer spinning, and more of a feeling of imbalance, like I was tipsy or drunk. Pt denies recent hearing changes, but did note a fullness, or pressure, in her left ear. Pt denies diplopia, dysarthria, discoordination, or decreased mentation/consciousness. Pt reports symptoms are waxing/ waning in nature, seemingly cycling between better or worse about every four days. Pt denies hx of HTN, hyperlipidemia, diabetes, arrhythmia, head trauma, seizure, migraines, back/neck problems, CVA, anxiety/panic disorders, depression, or excessive smoking or drinking. PT-OP-C Subjective Start: 10/03/20 16:59 Freq: Status: Active Protocol: Document 10/23/20 10:30 DCW (Rec: 10/23/20 11:16 DCW [id number]) OP-PT Subjective Patient Comments Patient Comments Pt notes she has been taking her Meclazine once a morning. Feels like it is a bit better. PT-OP-O Vestibular Start: 10/03/20 16:59 Freq: Status: Active Protocol: Document 10/03/20 14:30 DCW (Rec: 10/03/20 17:26 DCW [id number]) Vestibular Assessment Screening Tests Vestibular Artery Screen Negative Auditory Tests Kimble Test Within normal limits Rinne Test Negative Air Conduction Results Equal Visual Testing Smooth Pursuits Horizontal WNL Smooth Pursuits Vertical WNL Saccades Horizontal WNL Saccades Vertical WNL Gaze Evoked Nystagmus With Fixation Negative Gaze Evoked Nystagmus Without Fixation Negative Heave Test Positive Left Thrust Head Positive Left Head Shake Positive Positional Testing [place]-Hallpike Negative Left,Negative Right Rolling Test Negative Left,Negative Right Supine to Sit Negative Comments Vestibular Comments Positive lateral nystagmus following head shake toward right PT-OP-Q Treatments Start: 10/03/20 16:59 Freq: Status: Active Protocol: Document 10/23/20 10:30 DCW (Rec: 10/23/20 11:16 DCW [id number]) Neuro Re-Education Treatment Vestibular Rehabilitation Targets Details Laser on floral board Position Stance on foam Comments VOR, Name signing Corrective Saccades Details Eyes, then head Distance From Target arm's length Speed as tolerated Position seated X2 Viewing Details Head and target moving in opposite directions Speed as tolerated Position seated X1 Viewing Details Static target, moving head Background [place] print Distance From Target Arm length Speed as tolerated Position Standing Reps/Duration 30x5 Comments 3/10 dizziness Other Activities 2 Details foam balance with horizontal head turns Reps/Duration 5 min 1 Details walking in hallway Reps/Duration 5 min Comments horizontal and then vertical head turns PT-OP-T Assessment and Plan Start: 10/03/20 16:59 Freq: Status: Active Protocol: Document 10/23/20 10:30 DCW (Rec: 10/23/20 11:16 DCW [id number]) Physical Therapy Assessment Impairments Impairments Activity Tolerance,Balance, Functional Activities, Functional Mobility,Vestibular Goals Two Impairment Pt scores a 52% disability on the Dizziness Handicap Inventory Residential Door Unit Installer Goal (LTG) Pt to score <30% disability on the DHI LTG Duration 12/03/20 One Impairment Pt does not have an appropriate Home Exercise Program at this time Short Term Goal (STG) Pt to be independent and compliant with an appropriate HEP STG Duration 11/02/20 Assessment Summary Assessment Pt tolerated treatment well today, performing noticeably better with vestibular challenges, previously was not able to perform X2 exercises due to increased symptoms. Physical Therapy Plan Frequency and Duration Frequency of Treatment 2x/Week Duration of Treatment Two months Plan of Care Start Date 10/03/20 Plan of Care End Date 12/03/20 Therapeutic Interventions Therapeutic Interventions Balance Training,Canalithic Repositioning,Home Exercise Program,Manual Therapy, Neuromuscular Re-education, Patient/Caregiver Education, Self-Care/Home Management, Therapeutic Activities, Therapeutic Exercises, Vestibular Rehabilitation Next Visit Focus/Plan Next Note Type Treatment Note Next Visit Plan VOR, Vestibular rehabilitation , Habituation/Adaptation exercises
--- NOTE | 2020-10-25 16:00 | PT.OTN ---
Current Diagnoses Vestibular neuronitis, left ear (10/25/20) Dizziness and giddiness (10/25/20) Physical Therapy Treatment Note PT-OP-A Visit Information Start: 10/03/20 16:59 Freq: Status: Active Protocol: Document 10/25/20 15:19 DCW (Rec: 10/25/20 16:00 DCW [id number]) Out-Patient Physical Therapy Visit Information Visit Information Visit Type Treatment Note Visit Start Time 15:19 Visit Stop Time 16:00 Total Visit Minutes 41 Visit Number 5 Number of MASK DESIGNER Visits 0 Evaluation Information Evaluation Date 10/03/20 PT-OP-B Current Condition Start: 10/03/20 16:59 Freq: Status: Active Protocol: Document 10/03/20 14:30 DCW (Rec: 10/03/20 17:26 DCW [id number]) Current Condition History of Current Condition Onset Date 09/14/20 Current Complaints General imbalance following an episode of continous vertigo History of Current Condition Pt is a 55 year old female complaining of a three week history of vertigo and imbalance. Pt reports she woke up on , 09/14/20, with the entire room spinning, which continued for ~2 hours, no matter what she tried. Pt reports symptoms included nausea and vomiting. Pt did end up going to urgent care, who then sent her to the ED, on 09/17/20, where she was seen , diagnosed with peripheral vertigo, and discharged with Meclizine. She notes she improved by Thursday, and spent most of her weekend not doing much moving. Upon returning to work the following Thursday, pt noted worsened symptoms, especially when up walking around or moving her head, which were now no longer spinning, and more of a feeling of imbalance, like I was tipsy or drunk. Pt denies recent hearing changes, but did note a fullness, or pressure, in her left ear. Pt denies diplopia, dysarthria, discoordination, or decreased mentation/consciousness. Pt reports symptoms are waxing/ waning in nature, seemingly cycling between better or worse about every four days. Pt denies hx of HTN, hyperlipidemia, diabetes, arrhythmia, head trauma, seizure, migraines, back/neck problems, CVA, anxiety/panic disorders, depression, or excessive smoking or drinking. PT-OP-C Subjective Start: 10/03/20 16:59 Freq: Status: Active Protocol: Document 10/25/20 15:19 DCW (Rec: 10/25/20 16:00 DCW [id number]) OP-PT Subjective Patient Comments Patient Comments Pt was able to tolerate swinging in her yard today. PT-OP-O Vestibular Start: 10/03/20 16:59 Freq: Status: Active Protocol: Document 10/03/20 14:30 DCW (Rec: 10/03/20 17:26 DCW [id number]) Vestibular Assessment Screening Tests Vestibular Artery Screen Negative Auditory Tests Kimble Test Within normal limits Rinne Test Negative Air Conduction Results Equal Visual Testing Smooth Pursuits Horizontal WNL Smooth Pursuits Vertical WNL Saccades Horizontal WNL Saccades Vertical WNL Gaze Evoked Nystagmus With Fixation Negative Gaze Evoked Nystagmus Without Fixation Negative Heave Test Positive Left Thrust Head Positive Left Head Shake Positive Positional Testing [place]-Hallpike Negative Left,Negative Right Rolling Test Negative Left,Negative Right Supine to Sit Negative Comments Vestibular Comments Positive lateral nystagmus following head shake toward right PT-OP-Q Treatments Start: 10/03/20 16:59 Freq: Status: Active Protocol: Document 10/25/20 15:19 DCW (Rec: 10/25/20 16:00 DCW [id number]) Neuro Re-Education Treatment Balance Activities 2 Details Tandem Ambulation 1 Details BOSU Stance Comments X1 Vestibular Rehabilitation Corrective Saccades Details Eyes, then head Distance From Target arm's length Speed as tolerated Position seated X2 Viewing Details Head and target moving in opposite directions Speed as tolerated Position seated Other Activities 4 Details EC Rotation to target Comments L turn more difficult than R 3 Details Chain Reading Comments on Trampoline 2 Details foam balance with horizontal/ vertical head turns Reps/Duration 5 min 1 Details walking in hallway Reps/Duration 5 min Comments horizontal and then vertical head turns PT-OP-T Assessment and Plan Start: 10/03/20 16:59 Freq: Status: Active Protocol: Document 10/25/20 15:19 DCW (Rec: 10/25/20 16:00 DCW [id number]) Physical Therapy Assessment Impairments Impairments Activity Tolerance,Balance, Functional Activities, Functional Mobility,Vestibular Goals Two Impairment Pt scores a 52% disability on the Dizziness Handicap Inventory Occupational Therapy Aide Goal (LTG) Pt to score <30% disability on the DHI LTG Duration 12/03/20 One Impairment Pt does not have an appropriate Home Exercise Program at this time Short Term Goal (STG) Pt to be independent and compliant with an appropriate HEP STG Duration 11/02/20 Assessment Summary Assessment Pt continues to progress very well, tolerated all treatment today with no worsening of symptoms. Physical Therapy Plan Frequency and Duration Frequency of Treatment 2x/Week Duration of Treatment Two months Plan of Care Start Date 10/03/20 Plan of Care End Date 12/03/20 Therapeutic Interventions Therapeutic Interventions Balance Training,Canalithic Repositioning,Home Exercise Program,Manual Therapy, Neuromuscular Re-education, Patient/Caregiver Education, Self-Care/Home Management, Therapeutic Activities, Therapeutic Exercises, Vestibular Rehabilitation Next Visit Focus/Plan Next Note Type Treatment Note Next Visit Plan VOR, Vestibular rehabilitation , Habituation/Adaptation exercises
--- NOTE | 2020-10-31 16:01 | PT.OTN ---
Current Diagnoses Vestibular neuronitis, left ear (10/31/20) Dizziness and giddiness (10/31/20) Physical Therapy Treatment Note PT-OP-A Visit Information Start: 10/03/20 16:59 Freq: Status: Active Protocol: Document 10/31/20 15:17 DCW (Rec: 10/31/20 16:01 DCW [id number]) Out-Patient Physical Therapy Visit Information Visit Information Visit Type Treatment Note Visit Start Time 15:17 Visit Stop Time 16:00 Total Visit Minutes 43 Visit Number 6 Number of ACADEMY EDUCATION DIRECTOR Visits 0 Evaluation Information Evaluation Date 10/03/20 PT-OP-B Current Condition Start: 10/03/20 16:59 Freq: Status: Active Protocol: Document 10/03/20 14:30 DCW (Rec: 10/03/20 17:26 DCW [id number]) Current Condition History of Current Condition Onset Date 09/14/20 Current Complaints General imbalance following an episode of continous vertigo History of Current Condition Pt is a 55 year old female complaining of a three week history of vertigo and imbalance. Pt reports she woke up on , 09/14/20, with the entire room spinning, which continued for ~2 hours, no matter what she tried. Pt reports symptoms included nausea and vomiting. Pt did end up going to urgent care, who then sent her to the ED, on 09/17/20, where she was seen , diagnosed with peripheral vertigo, and discharged with Meclizine. She notes she improved by Thursday, and spent most of her weekend not doing much moving. Upon returning to work the following Thursday, pt noted worsened symptoms, especially when up walking around or moving her head, which were now no longer spinning, and more of a feeling of imbalance, like I was tipsy or drunk. Pt denies recent hearing changes, but did note a fullness, or pressure, in her left ear. Pt denies diplopia, dysarthria, discoordination, or decreased mentation/consciousness. Pt reports symptoms are waxing/ waning in nature, seemingly cycling between better or worse about every four days. Pt denies hx of HTN, hyperlipidemia, diabetes, arrhythmia, head trauma, seizure, migraines, back/neck problems, CVA, anxiety/panic disorders, depression, or excessive smoking or drinking. PT-OP-C Subjective Start: 10/03/20 16:59 Freq: Status: Active Protocol: Document 10/31/20 15:17 DCW (Rec: 10/31/20 16:01 DCW [id number]) OP-PT Subjective Patient Comments Patient Comments Hopefully I'm not jinxing myself, but it feels great. PT-OP-O Vestibular Start: 10/03/20 16:59 Freq: Status: Active Protocol: Document 10/03/20 14:30 DCW (Rec: 10/03/20 17:26 DCW [id number]) Vestibular Assessment Screening Tests Vestibular Artery Screen Negative Auditory Tests Kimble Test Within normal limits Rinne Test Negative Air Conduction Results Equal Visual Testing Smooth Pursuits Horizontal WNL Smooth Pursuits Vertical WNL Saccades Horizontal WNL Saccades Vertical WNL Gaze Evoked Nystagmus With Fixation Negative Gaze Evoked Nystagmus Without Fixation Negative Heave Test Positive Left Thrust Head Positive Left Head Shake Positive Positional Testing [place]-Hallpike Negative Left,Negative Right Rolling Test Negative Left,Negative Right Supine to Sit Negative Comments Vestibular Comments Positive lateral nystagmus following head shake toward right PT-OP-Q Treatments Start: 10/03/20 16:59 Freq: Status: Active Protocol: Document 10/31/20 15:17 DCW (Rec: 10/31/20 16:01 DCW [id number]) Gym Equipment Shuttle Balance Red Details WBOS (EO/EC), Staggered Neuro Re-Education Treatment Balance Activities 2 Details Tandem Ambulation Vestibular Rehabilitation X2 Viewing Details Head and target moving in opposite directions Speed as tolerated Position seated X1 Viewing Details Static target, moving head Background [place] print Distance From Target Arm length Speed as tolerated Position Standing Reps/Duration 30x5 Comments 3/10 dizziness Other Activities 4 Details EC Rotation to target Comments L turn more difficult than R 1 Details walking in hallway Reps/Duration 5 min Comments horizontal and then vertical head turns PT-OP-T Assessment and Plan Start: 10/03/20 16:59 Freq: Status: Active Protocol: Document 10/31/20 15:17 DCW (Rec: 10/31/20 16:01 DCW [id number]) Physical Therapy Assessment Impairments Impairments Activity Tolerance,Balance, Functional Activities, Functional Mobility,Vestibular Goals Two Impairment Pt scores a 52% disability on the Dizziness Handicap Inventory Assisted Goal (LTG) Pt to score <30% disability on the DHI LTG Duration 12/03/20 One Impairment Pt does not have an appropriate Home Exercise Program at this time Short Term Goal (STG) Pt to be independent and compliant with an appropriate HEP STG Duration 11/02/20 Assessment Summary Assessment Pt continues to progress well, will likely progress to independent HEP following her next scheduled visit. Physical Therapy Plan Frequency and Duration Frequency of Treatment 2x/Week Duration of Treatment Two months Plan of Care Start Date 10/03/20 Plan of Care End Date 12/03/20 Therapeutic Interventions Therapeutic Interventions Balance Training,Canalithic Repositioning,Home Exercise Program,Manual Therapy, Neuromuscular Re-education, Patient/Caregiver Education, Self-Care/Home Management, Therapeutic Activities, Therapeutic Exercises, Vestibular Rehabilitation Next Visit Focus/Plan Next Note Type Treatment Note Next Visit Plan VOR, Vestibular rehabilitation , Habituation/Adaptation exercises
--- NOTE | 2020-11-06 14:25 | PT.OTN ---
Current Diagnoses Vestibular neuronitis, left ear (11/06/20) Dizziness and giddiness (11/06/20) Physical Therapy Treatment Note PT-OP-A Visit Information Start: 10/03/20 16:59 Freq: Status: Active Protocol: Document 11/06/20 13:45 DCW (Rec: 11/06/20 14:25 DCW [id number]) Out-Patient Physical Therapy Visit Information Visit Information Visit Type Discharge Summary Visit Start Time 13:45 Visit Stop Time 14:25 Total Visit Minutes 40 Visit Number 7 Number of ELIGIBILITY TECHNICIAN Visits 0 Evaluation Information Evaluation Date 10/03/20 PT-OP-B Current Condition Start: 10/03/20 16:59 Freq: Status: Active Protocol: Document 10/03/20 14:30 DCW (Rec: 10/03/20 17:26 DCW [id number]) Current Condition History of Current Condition Onset Date 09/14/20 Current Complaints General imbalance following an episode of continous vertigo History of Current Condition Pt is a 55 year old female complaining of a three week history of vertigo and imbalance. Pt reports she woke up on , 09/14/20, with the entire room spinning, which continued for ~2 hours, no matter what she tried. Pt reports symptoms included nausea and vomiting. Pt did end up going to urgent care, who then sent her to the ED, on 09/17/20, where she was seen , diagnosed with peripheral vertigo, and discharged with Meclizine. She notes she improved by Thursday, and spent most of her weekend not doing much moving. Upon returning to work the following Thursday, pt noted worsened symptoms, especially when up walking around or moving her head, which were now no longer spinning, and more of a feeling of imbalance, like I was tipsy or drunk. Pt denies recent hearing changes, but did note a fullness, or pressure, in her left ear. Pt denies diplopia, dysarthria, discoordination, or decreased mentation/consciousness. Pt reports symptoms are waxing/ waning in nature, seemingly cycling between better or worse about every four days. Pt denies hx of HTN, hyperlipidemia, diabetes, arrhythmia, head trauma, seizure, migraines, back/neck problems, CVA, anxiety/panic disorders, depression, or excessive smoking or drinking. PT-OP-C Subjective Start: 10/03/20 16:59 Freq: Status: Active Protocol: Document 11/06/20 13:45 DCW (Rec: 11/06/20 14:25 DCW [id number]) OP-PT Subjective Patient Comments Patient Comments Things are great!. Patient Questionnaires Dizziness Handicap Inventory DHI Score 20% DHI Functional Impairment 20 to 39% Impaired (Score 20- 39) PT-OP-O Vestibular Start: 10/03/20 16:59 Freq: Status: Active Protocol: Document 10/03/20 14:30 DCW (Rec: 10/03/20 17:26 DCW [id number]) Vestibular Assessment Screening Tests Vestibular Artery Screen Negative Auditory Tests Kimble Test Within normal limits Rinne Test Negative Air Conduction Results Equal Visual Testing Smooth Pursuits Horizontal WNL Smooth Pursuits Vertical WNL Saccades Horizontal WNL Saccades Vertical WNL Gaze Evoked Nystagmus With Fixation Negative Gaze Evoked Nystagmus Without Fixation Negative Heave Test Positive Left Thrust Head Positive Left Head Shake Positive Positional Testing [place]-Hallpike Negative Left,Negative Right Rolling Test Negative Left,Negative Right Supine to Sit Negative Comments Vestibular Comments Positive lateral nystagmus following head shake toward right PT-OP-Q Treatments Start: 10/03/20 16:59 Freq: Status: Active Protocol: Document 11/06/20 13:45 DCW (Rec: 11/06/20 14:25 DCW [id number]) Gym Equipment Shuttle Balance Red Details WBOS (EO/EC), Staggered Neuro Re-Education Treatment Balance Activities 2 Details Tandem Ambulation 1 Details BOSU Stance Comments X1 Other Activities 4 Details EC Rotation to target Comments L turn more difficult than R 1 Details walking in hallway Reps/Duration 5 min Comments horizontal and then vertical head turns Self-Care/Home Management Treatment Education Other Education HEP, VN information PT-OP-T Assessment and Plan Start: 10/03/20 16:59 Freq: Status: Active Protocol: Document 11/06/20 13:45 DCW (Rec: 11/06/20 14:25 DCW [id number]) Physical Therapy Assessment Impairments Impairments Activity Tolerance,Balance, Functional Activities, Functional Mobility,Vestibular Goals Two Impairment Pt scores a 52% disability on the Dizziness Handicap Inventory [place] Goal (LTG) Pt to score <30% disability on the DHI LTG Duration Met - 20% One Impairment Pt does not have an appropriate Home Exercise Program at this time Short Term Goal (STG) Pt to be independent and compliant with an appropriate HEP STG Duration Met Progress Towards Goals Progress Towards Goals Goals Met Assessment Summary Assessment Pt has met all goals, appropriate for discharge to independent HEP at this time. Physical Therapy Plan Frequency and Duration Frequency of Treatment 2x/Week Duration of Treatment Two months Plan of Care Start Date 10/03/20 Plan of Care End Date 12/03/20 Therapeutic Interventions Therapeutic Interventions Balance Training,Canalithic Repositioning,Home Exercise Program,Manual Therapy, Neuromuscular Re-education, Patient/Caregiver Education, Self-Care/Home Management, Therapeutic Activities, Therapeutic Exercises, Vestibular Rehabilitation Discharge Physical Therapy Discharge Reasons Goals Met Next Visit Focus/Plan Next Note Type Discharge Summary Next Visit Plan VOR, Vestibular rehabilitation , Habituation/Adaptation exercises
== END 2020-11-07 13:12 | disposition home or self-care (01) ==
LOC: PHYS 13:45
PROVIDERS: Family Provider Family Medicine; PCP Family Medicine; Referring Provider Registered Nurse; Visit Provider Registered Nurse
DX: H81.22 Vestibular neuronitis, left ear (principal)
CPT/HCPCS: 97110; 97112; 97161; 97535

== ENCOUNTER → 2020-12-17 07:54 | Outpatient (CLI) | payer OTHER, SELFPAY ==
[2020-12-17 08:51] LABS: Add Manual Diff / Slide Review NO; Basophils Absolute Auto 0 /uL (0-100); Basophils Percent Auto 0.7 % (0-2); Eosinophils Absolute Auto 200 /uL (0-450); Eosinophils Percent Auto 3.2 % (2-4); Hematocrit 41.5 % (36-46); Hemoglobin 14.2 g/dL (12.0-16.0); Lymphocytes Absolute Auto 2500 /uL (1100-4500); Lymphocytes Percent Auto 43.2 % (25-40); Mean Corpuscular HGB Conc 34.2 % (30-36); Mean Corpuscular Hemoglobin 30.1 PG (26-34); Mean Corpuscular Volume 88.1 fL (80-100); Monocytes Absolute Auto 300 /uL (0-900); Monocytes Percent Auto 5.7 % (3-14); Neutrophils Absolute Auto 2700 /uL (1500-7000); Neutrophils Percent Auto 47.2 % (50-75); Platelet Count 313 X10^3/uL (150-400); Red Blood Cell Count 4.71 X10^6/uL (4.0-5.2); Red Cell Distribution Width 12.8 % (11.6-14.8); White Blood Cell Count 5.7 X10^3/uL (4.5-11.0)
[2020-12-17 09:04] LABS: Alanine Aminotransferase 33 IU/L (<35); Albumin 4.1 g/dL (3.5-5.0); Albumin Globulin Ratio 1.5 (1.0-2.8); Alkaline Phosphatase 50 U/L (38-126); Aspartate Aminotransferase 28 IU/L (14-36); BUN Creatinine Ratio 15.6 (6-22); Bilirubin Total 1.2 mg/dL (0.2-1.3); Blood Urea Nitrogen 12 mg/dL (7-17); Carbon Dioxide 27 mmol/L (22-32); Chloride 104 mmol/L (98-107); Cholesterol 165 mg/dL (140-199); Estimated Glomerular Filt Rate > 60.0 mL/min (>60); Globulin 2.8 g/dL (1.7-4.1); Glucose 108 mg/dL (70-100); HDL Cholesterol 46 mg/dL (40-60); HEMOLYSIS < 15 (0-50); LDL Cholesterol Calculated 90 mg/dL (<100); Potassium 4.1 mmol/L (3.4-5.1); Sodium 139 mmol/L (137-145); Total Protein 6.9 g/dL (6.3-8.2); Triglycerides 147 mg/dL (35-150)
[2020-12-17 09:23] LABS: Free T3, Triiodothyronine Free 5.02 pg/mL (2.77-5.27); Free T4, Direct Thyroxine 1.14 ng/dL (0.78-2.19)
[2020-12-17 09:36] LABS: Thyroid Stimulating Hormone 0.564 uIU/mL (0.47-4.68)
[2020-12-17 09:38] LABS: Vitamin D 25 Hydroxy (D3) 22.7 ng/mL (30.0-100.0)
== END ==
PROVIDERS: Family Provider Family Medicine; PCP Family Medicine; Referring Provider Family Medicine; Visit Provider Family Medicine
DX: Z00.00 Encounter for general adult medical examination without abnormal findings (principal); E55.9 Vitamin D deficiency, unspecified; R03.0 Elevated blood-pressure reading, without diagnosis of hypertension
CPT/HCPCS: 36415; 80053; 80061; 82306; 84439; 84443; 84481; 85025

== ENCOUNTER → 2021-12-09 09:44 | Outpatient (CLI) | payer OTHER, SELFPAY ==
[2021-12-09 11:12] LABS: Add Manual Diff / Slide Review NO; Basophils Absolute Auto 0 /uL (0-100); Basophils Percent Auto 0.7 % (0-2); Eosinophils Absolute Auto 200 /uL (0-450); Eosinophils Percent Auto 2.8 % (2-4); Hematocrit 40.4 % (36-46); Hemoglobin 14.2 g/dL (12.0-16.0); Lymphocytes Absolute Auto 2300 /uL (1100-4500); Lymphocytes Percent Auto 39.2 % (25-40); Mean Corpuscular HGB Conc 35.2 % (30-36); Mean Corpuscular Hemoglobin 30.3 PG (26-34); Mean Corpuscular Volume 86.2 fL (80-100); Monocytes Absolute Auto 300 /uL (0-900); Monocytes Percent Auto 4.8 % (3-14); Neutrophils Absolute Auto 3100 /uL (1500-7000); Neutrophils Percent Auto 52.5 % (50-75); Platelet Count 323 X10^3/uL (150-400); Red Blood Cell Count 4.69 X10^6/uL (4.0-5.2); Red Cell Distribution Width 12.8 % (11.6-14.8); White Blood Cell Count 5.9 X10^3/uL (4.5-11.0)
[2021-12-09 11:55] LABS: BUN Creatinine Ratio 17.6 (6-22); Blood Urea Nitrogen 12 mg/dL (7-17); Calcium 8.8 mg/dL (8.4-10.2); Carbon Dioxide 29 mmol/L (22-32); Chloride 100 mmol/L (98-107); Cholesterol 178 mg/dL (140-199); Estimated Glomerular Filt Rate > 60 mL/min (>60); Glucose 99 mg/dL (70-100); HDL Cholesterol 42 mg/dL (40-60); HEMOLYSIS < 15 (0-50); LDL Cholesterol Calculated 105 mg/dL (<100); Potassium 4.5 mmol/L (3.4-5.1); Sodium 135 mmol/L (137-145); Triglycerides 157 mg/dL (35-150)
[2021-12-12 18:12] LABS: Vitamin D 25 Hydroxy (D3) 54.9 ng/mL (30.0-100.0)
== END ==
PROVIDERS: Family Provider Family Medicine; PCP Family Medicine; Referring Provider Family Medicine; Visit Provider Family Medicine
DX: Z00.00 Encounter for general adult medical examination without abnormal findings (principal); E55.9 Vitamin D deficiency, unspecified
CPT/HCPCS: 36415; 80048; 80061; 82306; 85025

== ENCOUNTER → 2022-01-16 15:55 | Outpatient (CLI) | payer OTHER, SELFPAY ==
--- NOTE | 2022-01-16 15:56 | DI.MG.S_ITS ---
BILATERAL DIGITAL SCREENING MAMMOGRAM 3D/2D WITH CAD: 01/16/2022 CLINICAL: Routine screening. Family history of breast cancer. Comparison is made to exams dated: 12/22/2019 mammogram, 03/20/2017 mammogram, and 04/15/2013 mammogram - [facility]. There are scattered areas of fibroglandular density in both breasts (category b / 25%-50% glandular tissue). Current study was also evaluated with a Computer Aided Detection (CAD) system. No significant masses, calcifications, or other findings are seen in either breast. There has been no significant interval change. IMPRESSION: NEGATIVE There is no mammographic evidence of malignancy. A 1 year screening mammogram is recommended. Based on the Tyrer Cuzick model (a risk assessment model) the patient's lifetime risk is 8.3% and her 10 year risk is 3.0%. According to the ACR, ACS, and NCCN guidelines, an annual breast MRI exam along with mammogram is recommended if the patient's lifetime risk is 20% or greater. This exam was interpreted at Station ID: [id number]. NOTE: For mammograms, a report in lay terms will be sent to the patient. Approximately 15% of breast malignancies will not be visualized mammographically. In the management of a palpable breast mass, a negative mammogram must not discourage biopsy of a clinically suspicious lesion. Electronically Signed By: Berlin Carey M.D., jr/long:01/17/2022 08:45:54 letter sent: Normal Exam ACR BI-RADS Category 1: Negative 3341F
== END ==
PROVIDERS: Family Provider Family Medicine; PCP Family Medicine; Referring Provider Family Medicine; Visit Provider Family Medicine
DX: Z12.31 Encounter for screening mammogram for malignant neoplasm of breast (principal); Z80.3 Family history of malignant neoplasm of breast
CPT/HCPCS: 77063; 77067

== ENCOUNTER → 2022-05-14 15:37 | Outpatient (CLI) | payer OTHER, SELFPAY ==
[2022-05-15 08:10] LABS: Fecal Immunochemical Test Negative (Negative)
== END ==
PROVIDERS: Family Provider Family Medicine; PCP Family Medicine; Referring Provider Family Medicine; Visit Provider Family Medicine
DX: Z12.11 Encounter for screening for malignant neoplasm of colon (principal)
CPT/HCPCS: 82274

== ENCOUNTER → 2023-01-21 16:16 | Outpatient (CLI) | payer OTHER, SELFPAY ==
--- NOTE | 2023-01-21 | DI.MG.S_ITS ---
BILATERAL DIGITAL SCREENING MAMMOGRAM 3D/2D WITH CAD: 01/21/2023 CLINICAL: Routine screening. Family history of breast cancer. Comparison is made to exams dated: 01/16/2022 mammogram, 12/22/2019 mammogram, and 03/20/2017 mammogram - . There are scattered areas of fibroglandular density in both breasts (category b / 25%-50% glandular tissue). Current study was also evaluated with a Computer Aided Detection (CAD) system. No significant masses, calcifications, or other findings are seen in either breast. There has been no significant interval change. IMPRESSION: NEGATIVE There is no mammographic evidence of malignancy. A 1 year screening mammogram is recommended. Based on the Tyrer Cuzick model (a risk assessment model) the patient's lifetime risk is 8.1% and her 10 year risk is 3.1%. According to the ACR, ACS, and NCCN guidelines, an annual breast MRI exam along with mammogram is recommended if the patient's lifetime risk is 20% or greater. This exam was interpreted at Station ID: [id number]. NOTE: For mammograms, a report in lay terms will be sent to the patient. Approximately 15% of breast malignancies will not be visualized mammographically. In the management of a palpable breast mass, a negative mammogram must not discourage biopsy of a clinically suspicious lesion. Electronically Signed By: Ankit schreiber/long:01/22/2023 08:50:30 letter sent: Normal Exam ACR BI-RADS Category 1: Negative 3341F
== END ==
PROVIDERS: Family Provider Family Medicine; PCP Family Medicine; Referring Provider Family Medicine; Visit Provider Family Medicine
DX: Z12.31 Encounter for screening mammogram for malignant neoplasm of breast (principal); Z80.3 Family history of malignant neoplasm of breast
CPT/HCPCS: 77063; 77067

== ENCOUNTER → 2023-01-29 09:44 | Outpatient (CLI) | payer OTHER, SELFPAY ==
[2023-01-29 10:47] LABS: Add Manual Diff / Slide Review NO; Basophils Absolute Auto 0 /uL (0-100); Basophils Percent Auto 0.6 % (0-2); Eosinophils Absolute Auto 200 /uL (0-450); Eosinophils Percent Auto 2.9 % (2-4); Hematocrit 41.7 % (36-46); Hemoglobin 14.5 g/dL (12.0-16.0); Lymphocytes Absolute Auto 2100 /uL (1100-4500); Lymphocytes Percent Auto 38.2 % (25-40); Mean Corpuscular HGB Conc 34.7 % (30-36); Mean Corpuscular Hemoglobin 30.3 PG (26-34); Mean Corpuscular Volume 87.4 fL (80-100); Monocytes Absolute Auto 300 /uL (0-900); Monocytes Percent Auto 6.1 % (3-14); Neutrophils Absolute Auto 2800 /uL (1500-7000); Neutrophils Percent Auto 52.2 % (50-75); Platelet Count 317 X10^3/uL (150-400); Red Blood Cell Count 4.77 X10^6/uL (4.0-5.2); Red Cell Distribution Width 13.1 % (11.6-14.8); White Blood Cell Count 5.4 X10^3/uL (4.5-11.0)
[2023-01-29 11:08] LABS: Alanine Aminotransferase 24 IU/L (<35); Albumin 4.4 g/dL (3.5-5.0); Albumin Globulin Ratio 1.5 (1.0-2.8); Alkaline Phosphatase 55 U/L (38-126); Aspartate Aminotransferase 25 IU/L (14-36); BUN Creatinine Ratio 17.1 (6-22); Bilirubin Total 0.9 mg/dL (0.2-1.3); Blood Urea Nitrogen 12 mg/dL (7-17); Calcium 9.8 mg/dL (8.4-10.2); Carbon Dioxide 28 mmol/L (22-32); Chloride 105 mmol/L (98-107); Cholesterol 179 mg/dL (140-199); Estimated Glomerular Filt Rate > 60 mL/min (>60); Glucose 103 mg/dL (70-100); HDL Cholesterol 54 mg/dL (40-60); HEMOLYSIS < 15 (0-50); LDL Cholesterol Calculated 92 mg/dL (<100); Sodium 140 mmol/L (137-145); Total Protein 7.4 g/dL (6.3-8.2); Triglycerides 164 mg/dL (35-150)
[2023-01-29 11:46] LABS: Vitamin D 25 Hydroxy (D3) 41.4 ng/mL (30.0-100.0)
[2023-01-29 11:56] LABS: TSH w/ Reflex to FT4 1.95 uIU/mL (0.47-4.68)
== END ==
PROVIDERS: Family Provider Family Medicine; PCP Family Medicine; Referring Provider Family Medicine; Visit Provider Family Medicine
DX: B35.1 Tinea unguium (principal); E55.9 Vitamin D deficiency, unspecified; Z13.220 Encounter for screening for lipoid disorders; R03.0 Elevated blood-pressure reading, without diagnosis of hypertension
CPT/HCPCS: 36415; 80053; 80061; 82306; 84443; 85025

== ENCOUNTER → 2024-03-25 15:14 | Outpatient (CLI) | payer OTHER, SELFPAY ==
--- NOTE | 2024-03-25 15:15 | DI.MG.S_ITS ---
BILATERAL DIGITAL SCREENING MAMMOGRAM 3D/2D WITH CAD: 03/25/2024 CLINICAL: Routine screening. Family history of breast cancer. Comparison is made to exams dated: 01/21/2023 mammogram, 01/16/2022 mammogram, and 12/22/2019 mammogram - [facility]. There are scattered areas of fibroglandular density (category b / 25%-50% glandular tissue). Current study was also evaluated with a Computer Aided Detection (CAD) system. There is a new asymmetry in the right breast at 10 o'clock middle depth. No other significant masses, calcifications, or other findings are seen in either breast. IMPRESSION: INCOMPLETE: NEED ADDITIONAL IMAGING EVALUATION The new asymmetry in the right breast is indeterminate. Additional views with possible ultrasound are recommended. Based on the Tyrer Cuzick model (a risk assessment model) the patient's lifetime risk is 8.0% and her 10 year risk is 3.2%. According to the ACR, ACS, and NCCN guidelines, an annual breast MRI exam along with mammogram is recommended if the patient's lifetime risk is 20% or greater. This exam was interpreted at Station ID: [id number]. NOTE: For mammograms, a report in lay terms will be sent to the patient. Approximately 15% of breast malignancies will not be visualized mammographically. In the management of a palpable breast mass, a negative mammogram must not discourage biopsy of a clinically suspicious lesion. Electronically Signed By: Sarah marr/long:03/25/2024 16:16:19 letter sent: Additional Imaging Needed ACR BI-RADS Category 0: Incomplete: Need Additional Imaging Evaluation
== END ==
PROVIDERS: Family Provider Family Medicine; PCP Family Medicine; Referring Provider Family Medicine; Visit Provider Family Medicine
DX: Z12.31 Encounter for screening mammogram for malignant neoplasm of breast (principal); Z80.3 Family history of malignant neoplasm of breast
CPT/HCPCS: 77063; 77067

== ENCOUNTER → 2024-04-14 09:14 | Outpatient (CLI) | payer OTHER, SELFPAY ==
--- NOTE | 2024-04-14 | DI.MG.S_ITS ---
UNILATERAL RIGHT DIGITAL DIAGNOSTIC MAMMOGRAM 3D/2D WITH ADDITIONAL VIEWS: 04/14/2024 CLINICAL: Additional evaluation requested from prior study. Comparison is made to exams dated: 03/25/2024 mammogram, 01/21/2023 mammogram, and 01/16/2022 mammogram - [facility]. There are scattered areas of fibroglandular density (category b / 25%-50% glandular tissue). There is a 0.7 cm oval mass with a circumscribed margin in the right breast at 10 o'clock posterior depth. This corresponds to finding seen on recent screening mammogram. No other significant masses or calcifications are seen in the breast. IMPRESSION: INCOMPLETE: NEED ADDITIONAL IMAGING EVALUATION The 0.7 cm oval mass in the right breast is indeterminate. An ultrasound is recommended for further evaluation and is scheduled to immediately follow this examination. Based on the Tyrer Cuzick model (a risk assessment model) the patient's lifetime risk is 8.0% and her 10 year risk is 3.2%. According to the ACR, ACS, and NCCN guidelines, an annual breast MRI exam along with mammogram is recommended if the patient's lifetime risk is 20% or greater. This exam was interpreted at Station ID: [id number]. NOTE: For mammograms, a report in lay terms will be sent to the patient. Approximately 15% of breast malignancies will not be visualized mammographically. In the management of a palpable breast mass, a negative mammogram must not discourage biopsy of a clinically suspicious lesion. Electronically Signed By: Stephanie Patricia M.D., Ph.D. eb/:04/14/2024 11:12:56 letter sent: Additional Imaging Needed ACR BI-RADS Category 0: Incomplete: Need Additional Imaging Evaluation
--- NOTE | 2024-04-14 09:17 | DI.US.S_ITS ---
LIMITED ULTRASOUND OF RIGHT BREAST: 04/14/2024 CLINICAL: Patient returns today to evaluate a focal asymmetry in the right breast. Comparison is made to exams dated: 04/14/2024 mammogram, 03/25/2024 mammogram, 01/21/2023 mammogram, 01/16/2022 mammogram, 12/22/2019 mammogram, and 03/20/2017 mammogram - [facility]. Color flow and real-time ultrasound of the right breast 10 o'clock region were performed. Khoury scale images of the real-time examination were reviewed. There is a benign 0.7 cm simple cyst in the right breast at 10 o'clock posterior depth 10 cm from the nipple. This correlates with mammography findings. IMPRESSION: BENIGN Right breast 0.7 cm simple cyst at 10 o'clock is benign. No mammographic or sonographic evidence of malignancy. A 1 year screening mammogram is recommended. Findings and recommendations were conveyed to the patient during today's evaluation. This exam was interpreted at Station ID: [id number]. Electronically Signed By: Stephanie Patricia M.D., Ph.D. eb/:04/14/2024 12:45:06 letter sent: Normal Exam ACR BI-RADS Category 2: Benign
== END ==
PROVIDERS: Family Provider Family Medicine; PCP Family Medicine; Referring Provider Family Medicine; Visit Provider Family Medicine
DX: R92.8 Other abnormal and inconclusive findings on diagnostic imaging of breast (principal); N60.01 Solitary cyst of right breast
CPT/HCPCS: 76642; 77065; G0279

== ENCOUNTER → 2025-01-31 07:28 | Outpatient (CLI) | payer OTHER, SELFPAY ==
[2025-01-31 08:09] LABS: Add Manual Diff / Slide Review NO; Hematocrit 41.9 % (36-46); Hemoglobin 14.7 g/dL (12.0-16.0); Lymphocytes Absolute Auto 2700 /uL (1100-4500); Mean Corpuscular HGB Conc 35.1 % (30-36); Mean Corpuscular Hemoglobin 30.4 PG (26-34); Mean Corpuscular Volume 86.5 fL (80-100); Platelet Count 285 X10^3/uL (150-400)
[2025-01-31 08:49] LABS: Alanine Aminotransferase 22 IU/L (<35); Albumin 4.4 g/dL (3.5-5.0); Albumin Globulin Ratio 1.6 (1.0-2.8); Alkaline Phosphatase 57 U/L (38-126); Blood Urea Nitrogen 12 mg/dL (7-17); Calcium 9.4 mg/dL (8.4-10.2); Carbon Dioxide 26 mmol/L (22-32); Chloride 101 mmol/L (98-107); Cholesterol 186 mg/dL (140-199); Estimated Glomerular Filt Rate > 60 mL/min (>60); Globulin 2.7 g/dL (1.7-4.1); Glucose 101 mg/dL (70-99); HDL Cholesterol 63 mg/dL (40-60); HEMOLYSIS < 15 (0-50); Potassium 4.2 mmol/L (3.4-5.1); Sodium 136 mmol/L (137-145); Total Protein 7.1 g/dL (6.3-8.2); Triglycerides 133 mg/dL (35-150)
[2025-01-31 10:58] LABS: Vitamin D 25 Hydroxy (D3) 25.7 ng/mL (30.0-100.0)
== END ==
PROVIDERS: Family Provider Family Medicine; PCP Family Medicine; Referring Provider Family Medicine; Visit Provider Family Medicine
DX: Z00.01 Encounter for general adult medical examination with abnormal findings (principal); E55.9 Vitamin D deficiency, unspecified; E78.5 Hyperlipidemia, unspecified
CPT/HCPCS: 36415; 80053; 80061; 82306; 85025

== ENCOUNTER → 2025-02-15 15:27 | Outpatient (CLI) | payer OTHER, SELFPAY ==
--- NOTE | 2025-02-15 15:30 | DI.RAD.S_ITS ---
PROCEDURE: XR KNEE LT 3V INDICATIONS: LT KNEE PAIN TECHNIQUE: 3 views of the knee were acquired. COMPARISON: None. FINDINGS: Bones: There are no osseous abnormalities. Joints: The tibialfemoral and patellofemoral joints are normal in width and alignment without arthritic change. . There are no effusions. Soft tissues: Normal IMPRESSION: Normal left knee. Dictated by: Juan Olguin M.D. on 02/16/2025 at 12:00 Approved by: Juan Olguin M.D. on 02/16/2025 at 12:01
== END ==
LOC: RAD 15:28
PROVIDERS: PCP Family Medicine; Referring Provider Family Medicine; Visit Provider Family Medicine
DX: M25.562 Pain in left knee (principal)
CPT/HCPCS: 73562